=== PATIENT | female | born 1955 | race Caucasian/White ===

== ENCOUNTER 2020-01-08 06:29 | Inpatient (IN) | payer MEDICARE, OTHER ==
[2020-01-08] MEDS ORDERED: ACETAMINOPHEN TAB 325 MG TAB PO STA (06:53)
[2020-01-08] MEDS ORDERED: IPRATROPIUM-ALBUTEROL 3 ML NEB INHALATION STA ×2 (06:58→07:00)
[2020-01-08] MEDS: SODIUM CHLORIDE 0.9% 1,000 ML IV SCH ×3 (07:03→21:16)
--- NOTE | 2020-01-08 07:12 | ED ---
URI HPI - General Source: patient, EMS, RN notes reviewed Mode of arrival: EMS Limitations: altered mental status <Shilo Chase - Last Filed: 01/08/20 08:19> <Enoch Antonio - Last Filed: 01/08/20 08:51> - General Chief Complaint: Upper Respiratory Infection Stated Complaint: Pneumonia Time Seen by Provider: 01/08/20 06:33 - History of Present Illness Initial Comments: This a 64-year-old female presents emergency department as a transfer from [facility] complaining of pneumonia, lung consolidation, hypoxia. Patient has underlying dementia and resides at a [facility]. Patient found to have fever, cough. Patient did undergo lab work, x-ray, CT of the chest. Patient CT shows consolidation in the left lung. Patient did have hypoxia regardless of 5 L in which a PG was obtained and showed O2 at 99%. Patient was then placed on 3 L. Patient's had recent fever. Patient did have a lactate of 4.1. Patient was given mild fluid hydration. Patient denies any current pain. Patient informati on is very limited and patient has baseline confusion. (Shilo Chase) - Related Data Previous Rx's Medication Instructions Recorded Cholecalciferol [Vitamin D3 (25 2,000 unit PO BID #120 tab 04/08/16 Mcg = 1000 Iu)] Divalproex ER [Depakote ER] 500 mg PO TID #90 tab.er.24h 04/08/16 Escitalopram [Lexapro] 10 mg PO DAILY #30 tab 04/08/16 Furosemide [Lasix] 20 mg PO Q2D #30 tab 04/08/16 LORazepam [Ativan] 1 mg PO TID PRN #60 tab 04/08/16 Lurasidone [Latuda] 40 mg PO PC-BID #60 tab 04/08/16 Memantine [Namenda] 5 mg PO DAILY #30 tab 04/08/16 Oxybutynin Chloride [Ditropan] 2.5 mg PO BID #30 tab 04/08/16 SILVER sulfADIAZINE CREAM 1 applic TOPICAL DAILY #1 applic 04/08/16 [Silvadene Cream] haloperidoL [Haldol] 10 mg PO HS #60 tab 04/08/16 hydrOXYzine pamoate [Vistaril] 25 mg PO Q6HR #60 cap 04/08/16 metFORMIN HCL [Glucophage] 500 mg PO W/BRKFST #30 tab 04/08/16 sitaGLIPtin [Januvia] 50 mg PO DAILY #30 tab 04/08/16 traZODone HCL [Desyrel] 50 mg PO HS #30 tab 04/08/16 Allergies Allergy/AdvReac Type Severity Reaction Status Date / Time No Known Allergies Allergy Verified 03/18/16 08:32 Review of Systems ROS Other: All systems not noted in ROS Statement are negative. <Shilo Chase - Last Filed: 01/08/20 08:19> ROS Other: All systems not noted in ROS Statement are negative. <Enoch Antonio - Last Filed: 01/08/20 08:51> ROS Statement: Those systems with pertinent positive or pertinent negative responses have been documented in the HPI. Past Medical History Past Medical History: Diabetes Mellitus, Hypertension, Skin Disorder Additional Past Medical History / Comment(s): Pt. appears to have dementia and is unable to recall medical pbs. History of Any Multi-Drug Resistant Organisms: None Reported Past Alcohol Use History: None Reported Past Drug Use History: None Reported <Shilo Chase - Last Filed: 01/08/20 08:19> General Exam Limitations: altered mental status General appearance: alert, in no apparent distress Head exam: Present: atraumatic, normocephalic, normal inspection Eye exam: Present: normal appearance, PERRL, EOMI. Absent: scleral icterus, conjunctival injection, periorbital swelling ENT exam: Present: normal exam, normal oropharynx, mucous membranes moist Neck exam: Present: normal inspection, full ROM. Absent: tenderness, meningismus, lymphadenopathy Respiratory exam: Present: respiratory distress (Mild), wheezes, rhonchi, decreased breath sounds. Absent: normal lung sounds bilaterally, rales, stridor Cardiovascular Exam: Present: normal rhythm, tachycardia, normal heart sounds. Absent: systolic murmur, diastolic murmur, rubs, gallop, clicks GI/Abdominal exam: Present: soft, normal bowel sounds. Absent: distended, tenderness, guarding, rebound, rigid Neurological exam: Present: alert, oriented X3 Skin exam: Present: warm, dry, intact, normal color. Absent: rash <Shilo Chase - Last Filed: 01/08/20 08:19> Course Vital Signs 01/08/20 01/08/20 01/08/20 06:30 06:50 07:01 Temperature 100.3 F H Pulse Rate 130 H 131 H Respiratory 36 H 36 H Rate Blood Pressure 159/59 O2 Sat by Pulse 84 L Oximetry 01/08/20 01/08/20 01/08/20 07:18 07:37 08:30 Temperature 98.2 F Pulse Rate 142 H 144 H 142 H Respiratory 24 20 Rate Blood Pressure 139/104 179/85 O2 Sat by Pulse 87 L 96 Oximetry Procedures - Intubation Sedative: Versed Mg Given: 5 Paralytic: Rocuronium Mg Given: 50 Laryngoscope: Delmar Size: 3 ET Tube Size: 7.5 ET Tube Uncuffed: No Tube Secured Depth (cm): 22 Tube Secured Location: lips Tube Placement Confirmation: visualized tube passing through cords, equal breath sounds bilaterally, no breath sounds over epigastrium, confirmation by capnometry Patient Tolerated Procedure: well, no complications Intubation Complications: none <Enoch Antonio - Last Filed: 01/08/20 08:51> Medical Decision Making - Lab Data Result diagrams: 01/08/20 07:04 01/08/20 07:04 <Shilo Chase - Last Filed: 01/08/20 08:19> - Lab Data Result diagrams: 01/08/20 07:04 01/08/20 07:04 <Enoch Antonio - Last Filed: 01/08/20 08:51> - Medical Decision Making 63-year-old presented for transfer pneumonia. Patient found to be persistently hypoxic, tachycardic. Patient was in acute respiratory distress. Patient was intubated at this time by Dr. Antonio. Patient was given Zosyn prior arrival continuation of Zosyn. ICU/logging contractor Dr. Snyder was contacted evaluate the patient emergency department. Patient did have fluid hydration ordered. Patient will be admitted to ICU for further management and possible bronchoscopy. (Shilo Chase) Patient was accepted as a transfer for pneumonia, hypoxia, CT showing obstructed bronchus and concern for aspiration. She was given antibiotics prior to transfer. Upon arrival she has oxygen saturation in the mid to low 80s. Despite supplemental oxygen, this does not improve. Patient's paperwork does indicate that she is a full code. This time I did decide to intubate the patient for improved oxygenation. She is intubated with a 7.5 ET tube without complication. She is admitted to ICU. Case is discussed with Dr. Pascual and Dr. Snyder who is able to evaluate the patient in the emergency department. (Enoch Antonio) - Lab Data Lab Results 01/08/20 01/08/20 01/08/20 Range/Units 07:04 07:04 07:04 WBC 8.7 (3.8-10.6) k/uL RBC 4.09 (3.80-5.40) m/uL Hgb 14.0 (11.4-16.0) gm/dL Hct 40.7 (34.0-46.0) % MCV 99.4 (80.0-100.0) fL MCH 34.1 (25.0-35.0) pg MCHC 34.4 (31.0-37.0) g/dL RDW 13.5 (11.5-15.5) % Plt Count 135 L (150-450) k/uL Neutrophils % 82 % Lymphocytes % 10 % Monocytes % 6 % Eosinophils % 1 % Basophils % 0 % Neutrophils # 7.2 (1.3-7.7) k/uL Lymphocytes # 0.9 L (1.0-4.8) k/uL Monocytes # 0.6 (0-1.0) k/uL Eosinophils # 0.1 (0-0.7) k/uL Basophils # 0.0 (0-0.2) k/uL VBG pH (7.31-7.41) VBG pCO2 (37-51) mmHg VBG HCO3 (24-28) mmol/L Sodium 140 (137-145) mmol/L Potassium 4.1 (3.5-5.1) mmol/L Chloride 103 (98-107) mmol/L Carbon Dioxide 29 (22-30) mmol/L Anion Gap 8 mmol/L BUN 17 (7-17) mg/dL Creatinine 0.71 (0.52-1.04) mg/dL Est GFR (CKD-EPI)AfAm >90 (>60 ml/min/1.73 sqM) Est GFR (CKD-EPI)NonAf >90 (>60 ml/min/1.73 sqM) Glucose 197 H (74-99) mg/dL Plasma Lactic Acid Dennis 3.0 H* (0.7-2.0) mmol/L Calcium 9.4 (8.4-10.2) mg/dL Magnesium 1.7 (1.6-2.3) mg/dL Total Bilirubin 1.0 (0.2-1.3) mg/dL AST 31 (14-36) U/L ALT 15 (4-34) U/L Alkaline Phosphatase 47 (38-126) U/L Total Protein 6.2 L (6.3-8.2) g/dL Albumin 3.5 (3.5-5.0) g/dL 01/08/20 Range/Units 07:13 WBC (3.8-10.6) k/uL RBC (3.80-5.40) m/uL Hgb (11.4-16.0) gm/dL Hct (34.0-46.0) % MCV (80.0-100.0) fL MCH (25.0-35.0) pg MCHC (31.0-37.0) g/dL RDW (11.5-15.5) % Plt Count (150-450) k/uL Neutrophils % % Lymphocytes % % Monocytes % % Eosinophils % % Basophils % % Neutrophils # (1.3-7.7) k/uL Lymphocytes # (1.0-4.8) k/uL Monocytes # (0-1.0) k/uL Eosinophils # (0-0.7) k/uL Basophils # (0-0.2) k/uL VBG pH 7.43 H (7.31-7.41) VBG pCO2 45 (37-51) mmHg VBG HCO3 29 H (24-28) mmol/L Sodium (137-145) mmol/L Potassium (3.5-5.1) mmol/L Chloride (98-107) mmol/L Carbon Dioxide (22-30) mmol/L Anion Gap mmol/L BUN (7-17) mg/dL Creatinine (0.52-1.04) mg/dL Est GFR (CKD-EPI)AfAm (>60 ml/min/1.73 sqM) Est GFR (CKD-EPI)NonAf (>60 ml/min/1.73 sqM) Glucose (74-99) mg/dL Plasma Lactic Acid Dennis (0.7-2.0) mmol/L Calcium (8.4-10.2) mg/dL Magnesium (1.6-2.3) mg/dL Total Bilirubin (0.2-1.3) mg/dL AST (14-36) U/L ALT (4-34) U/L Alkaline Phosphatase (38-126) U/L Total Protein (6.3-8.2) g/dL Albumin (3.5-5.0) g/dL Critical Care Time Critical Care Time: Yes Total Critical Care Time: 35 <Shilo Chase - Last Filed: 01/08/20 08:19> Critical Care Time: Total 35 minutes of critical care were used to evaluate the patient, reviewed past medical history, according of labs, EKG. Patient's found to have anemia, lactic of 12.1, acute renal failure. Blood was ordered at the time. Patient did have initial fluid bolus ordered though this is discontinued secondary to hemoglobin at 3. Be admitted with consult. (Shilo Chase) Disposition <Shilo Chase - Last Filed: 01/08/20 08:19> <Enoch Antonio - Last Filed: 01/08/20 08:51> Clinical Impression: Lactic acidosis, Pneumonia, Hypoxia, Acute respiratory distress Disposition: ADMITTED IP TO THIS HOSP Condition: Critical
[2020-01-08 07:27] LABS: VBG PH 7.43 (7.31-7.41)
[2020-01-08 07:37] LABS: ALT 15 U/L (4-34); AST 31 U/L (14-36); African American GFR (CKD) >90 (>60 ml/min/1.73 sqM); Albumin 3.5 g/dL (3.5-5.0); Alkaline Phosphatase 47 U/L (38-126); Anion Gap 8 mmol/L; Blood Urea Nitrogen 17 mg/dL (7-17); Calcium 9.4 mg/dL (8.4-10.2); Carbon Dioxide 29 mmol/L (22-30); Chloride 103 mmol/L (98-107); Glucose 197 mg/dL (74-99); Magnesium 1.7 mg/dL (1.6-2.3); Non-African American GFR(CKD) >90 (>60 ml/min/1.73 sqM); Sodium 140 mmol/L (137-145); Total Protein 6.2 g/dL (6.3-8.2)
[2020-01-08] MEDS ORDERED: MIDAZOLAM 1 MG/ML 5 ML VIAL IV STA (07:45)
[2020-01-08] MEDS ORDERED: ETOMIDATE 2 MG/ML 10 ML VIAL IVP STA (07:45)
[2020-01-08 07:51] LABS: Potassium 4.1 mmol/L (3.5-5.1)
[2020-01-08 07:59] LABS: Basophils % (A) 0 %; Eosinophils # (A) 0.1 k/uL (0-0.7); Eosinophils % (A) 1 %; HCT 40.7 % (34.0-46.0); Lymphocytes # (A) 0.9 k/uL (1.0-4.8); Lymphocytes % (A) 10 %; MCH 34.1 pg (25.0-35.0); MCHC 34.4 g/dL (31.0-37.0); MCV 99.4 fL (80.0-100.0); Mean Platelet Volume 7.5; Monocytes # (A) 0.6 k/uL (0-1.0); Monocytes % (A) 6 %; Neutrophils # (A) 7.2 k/uL (1.3-7.7); Neutrophils % (A) 82 %; Platelet Count 135 k/uL (150-450); RBC 4.09 m/uL (3.80-5.40); RDW 13.5 % (11.5-15.5); WBC 8.7 k/uL (3.8-10.6)
[2020-01-08] MEDS ORDERED: ROCURONIUM BROMIDE 10 MG/ML 5 ML VIAL IV STA (08:06)
[2020-01-08] MEDS ORDERED: NALOXONE 0.4 MG/ML 1 ML VIAL IV PRN (08:14)
--- NOTE | 2020-01-08 08:24 | XR ---
EXAMINATION TYPE: XR chest 1V DATE OF EXAM: 01/08/2020 COMPARISON: Outside chest CT in the chest x-ray earlier today. HISTORY: Intubated for shortness of breath. TECHNIQUE: Single AP portable frontal supine view of the chest is obtained. FINDINGS: New endotracheal tube at level of aortic knob roughly 1 cm above mario, advise pulling elvira k 4 cm. New orogastric tube projecting below diaphragm. There is low lung volumes and left mid lung consolidation more prominent from the prior x-ray. Right lung is clear. No pleural effusion or pneumothorax seen bilaterally. Multilevel spurring in the spine . IMPRESSION: 1. Advise pulling back endotracheal tube 4 cm to be more ideal position. Satisfactory positioning alexis gastric tube. 2. Worsening left mid lung acute infiltrate and/or atelectasis.
[2020-01-08] MEDS: PANTOPRAZOLE 40 MG/10 ML VIAL IV SCH (09:13)
[2020-01-08] MEDS: ENOXAPARIN 40 MG/0.4 ML SYRINGE SQ SCH (09:13)
[2020-01-08 09:41] LABS: ABG Base Excess -1.2 mmol/L; ABG HCO3 24 mmol/L (21-25); ABG Oxygen Saturation 96.4 % (94-97); ABG PCO2 40 mmHg (35-45); ABG PH 7.39 (7.35-7.45); ABG PO2 90 mmHg (83-108); ABG TCO2 25 mmol/L (19-24); Allen Test Performed? Yes
[2020-01-08] MEDS ORDERED: CHLORHEXIDINE GLUCONATE 15 ML CUP MUCOUS MEM ONE (10:15)
[2020-01-08 11:27] LABS: Glucose,Whole Blood 274 mg/dL (75-99)
--- NOTE | 2020-01-08 11:41 | P.HPIM ---
History of Present Illness This is a pleasant 64 years old female with past medical history of dementia, diabetes mellitus, hypertension, chronic venous stasis of both lower extremities with leg edema, frequent falls. Anxiety, depression and schizoaffective disorder. History of urinary incontinence. Patient is from [facility]. Normally she is oriented to time and place and person. Patient got intubated and emergency room and information could not be obtained from patient. Was obtained from medical records and staff. She was transferred from [facility] for pneumonia and hypoxia. She had fever and cough and. She is tachycardic with heart rate 133-142, blood pressure 164/68, she had low- grade fever of 100.3. Left showing unremarkable CBC, BMP and liver enzymes. Lactic acid is elevated to 3.0-3.8 Chest x-ray: Showing worsening left midlung acute infiltrate, endotracheal tube In the emergency room patient was started on Tylenol, bronchodilator and Zosyn Review of Systems n/a patient is intubated Past Medical History Past Medical History: Dementia, Diabetes Mellitus, Hypertension, Skin Disorder, Vascular Disorder Additional Past Medical History / Comment(s): Pt is normally oriented to person, place and time. Other hx: IDDM type II, PVD, bilateral lower leg cellulitis, chronic venous stasis bilateral lower legs, bilateral lower leg edema, chair bound, past frequent falls, constipation with last BM 01/07/20. History of Any Multi-Drug Resistant Organisms: None Reported Past Surgical History: Unable to Obtain Past Anesthesia/Blood Transfusion Reactions: Unable to Obtain Smoking Status: Former smoker - Past Family History Father Family Medical History: Unable to Obtain Mother Family Medical History: Unable to Obtain Medications and Allergies Home Medications Medication Instructions Recorded Confirmed Type Acetaminophen [Tylenol Extra 500 mg PO Q6H PRN 01/08/20 01/08/20 History Strength] Bumetanide [BUMEX] 2 mg PO BID@0900,1700 01/08/20 01/08/20 History Calcium Carbonate [Tums] 1,000 mg PO Q2H PRN MDD 7500mg 01/08/20 01/08/20 History Divalproex ER [Depakote ER] 500 mg PO TID@0900,1700,199901/08/20 01/08/20 History Escitalopram [Lexapro] 5 mg PO DAILY@0900 01/08/2020 History Insulin Glargine,Hum.rec.anlog 20 unit SQ HS@199901/08/20 01/08/20 History [Harry Palma U-100] Ketoconazole 2% Shampoo [Nizoral] 1 applic TOPICAL DAILY PRN 01/08/20 01/08/20 History Linagliptin [Tradjenta] 5 mg PO DAILY@89901/08/20 01/08/20 History Magnesium Hydroxide [Milk of 7,200 mg PO DAILY PRN 01/08/20 01/08/20 History Magnesia Concentrate] Memantine [Namenda] 5 mg PO BID@899,169901/08/20 01/08/20 History Ondansetron [Zofran ODT] 4 mg PO Q4H PRN 01/08/20 01/08/20 History Potassium Chloride ER [K-Dur 20] 40 meq PO DAILY@89901/08/20 01/08/20 History bisacodyL [Bisacodyl] 10 mg RECTAL Q72H PRN 01/08/20 01/08/20 History haloperidoL [Haldol] 10 mg PO HS@199901/08/20 01/08/20 History metFORMIN HCL [Glucophage] 500 mg PO BID@0900,1700 01/08/20 01/08/20 History Allergies Allergy/AdvReac Type Severity Reaction Status Date / Time No Known Allergies Allergy Verified 01/08/20 09:05 Physical Exam Vitals: Vital Signs Temp Pulse Resp BP Pulse Ox 01/08/20 10:30 99.2 F 133 H 20 164/68 99 01/08/20 10:00 135 H 20 168/90 99 01/08/20 09:30 142 H 20 175/45 97 01/08/20 09:00 134 H 20 149/88 95 01/08/20 08:30 142 H 20 179/85 96 01/08/20 07:37 98.2 F 144 H 24 139/104 87 L 01/08/20 07:18 142 H 01/08/20 07:01 131 H 01/08/20 06:50 36 H 01/08/20 06:30 100.3 F H 130 H 36 H 159/59 84 L Intake and Output 01/07/20 01/08/20 01/08/20 22:59 06:59 14:59 Intake Total 1.751 Balance 1.751 Intake: Intake, IV Titration 1.751 Amount propofoL 1,000 mg In 1.751 Empty Bag 1 bag @ Titrate IV .Q0M [facility] Rx#: [id number] Other: Weight 108.862 kg 108.862 kg -GENERAL: The patient is intubated and sedated HEENT: Pupils are round and equally reacting to light. EOMI. No scleral icterus. No conjunctival pallor. Normocephalic, atraumatic. No pharyngeal erythema. No thyromegaly. CARDIOVASCULAR: S1 and S2 present. No murmurs, rubs, or gallops. -PULMONARY: Chest is clear to auscultation, no wheezing. Crepitation in the left side ABDOMEN: Soft, nontender, nondistended, normoactive bowel sounds. No palpable organomegaly. MUSCULOSKELETAL: No joint swelling or deformity. EXTREMITIES: No cyanosis, clubbing, or pedal edema. NEUROLOGICAL: Gross neurological examination did not reveal any focal deficits. SKIN: No rashes. No petechiae Results CBC & Chem 7: 01/08/20 07:04 01/08/20 07:04 Labs: Abnormal Lab Results - Last 24 Hours (Table) 01/08/20 01/08/20 01/08/20 Range/Units 07:04 07:04 07:04 Plt Count 135 L (150-450) k/uL Lymphocytes # 0.9 L (1.0-4.8) k/uL ABG Total CO2 (19-24) mmol/L VBG pH (7.31-7.41) VBG HCO3 (24-28) mmol/L Glucose 197 H (74-99) mg/dL Plasma Lactic Acid Dennis 3.0 H* (0.7-2.0) mmol/L Total Protein 6.2 L (6.3-8.2) g/dL 01/08/20 01/08/20 01/08/20 Range/Units 07:13 09:35 10:16 Plt Count (150-450) k/uL Lymphocytes # (1.0-4.8) k/uL ABG Total CO2 25 H (19-24) mmol/L VBG pH 7.43 H (7.31-7.41) VBG HCO3 29 H (24-28) mmol/L Glucose (74-99) mg/dL Plasma Lactic Acid Dennis 3.8 H* (0.7-2.0) mmol/L Total Protein (6.3-8.2) g/dL Thrombosis Risk Factor Assmnt - Choose All That Apply Any of the Below Risk Factors Present?: Yes Each Factor Represents 1 point: Medical pt on bed rest, Obesity (BMI >25), Serious lung disease incl. pneumonia (< 1month) Other Risk Factors: Yes Each Risk Factor Represents 2 Points: Age 61-74 years, Patient confined to bed Other congenital or acquired thrombophilia - If yes, enter type in comment: No Thrombosis Risk Factor Assessment Total Risk Factor Score: 7 Thrombosis Risk Factor Assessment Level: High Risk Assessment and Plan Assessment: Acute left lung pneumonia, most likely healthcare acquired pneumonia Acute hypoxic respiratory failure, needing intubation and mechanical ventilation Elevated lactic acid Dementia Diabetes mellitus Hypertension Chronic venous stasis ulcers and bilateral leg edema Frequent falls History of anxiety, depression and schizoaffective disorder History of urinary incontinence Plan: This is a pleasant 64 years old female who presents with left pneumonia and respiratory failure. Continue with Zosyn. Follow-up sputum culture results. Follow-up recommendation by pulmonary team service. Continue with insulin sliding scale. Labs and medication were reviewed.. Continue same treatment. Continue with symptomatic treatment. Resume home medication. Monitor lytes and vitals. DVT and GI prophylaxis. Further recommendations depends on the clinical course of the patient DVT prophylaxis: Subcutaneou Lovenox GI Prophylaxis: Ppi Prognosis is guarded
[2020-01-08] MEDS ORDERED: CISATRACURIUM 2 MG/ML 5 ML VIAL IV ONE (12:10)
[2020-01-08] MEDS: IPRATROPIUM-ALBUTEROL 3 ML NEB INHALATION SCH ×4 (12:28→23:30)
[2020-01-08] MEDS ORDERED: INSULIN ASPART (NovoLOG) 100 UNIT/ML VIAL SQ SCH (12:30)
--- NOTE | 2020-01-08 12:57 | XR ---
EXAMINATION TYPE: XR chest 1V DATE OF EXAM: 01/08/2020 CLINICAL HISTORY: Central line placement. TECHNIQUE: Single AP portable upright view of the chest is obtained. COMPARISON: Chest x-ray from earlier today and older studies FINDINGS: Stable positioning of endotracheal and orogastric tubes. New left internal jugular central venous catheter terminating in right atrium. Worsening left mid to basilar opacity now silhouetting left hemidiaphragm. Right lung remains clear. Cardiac silhouette size stable and within normal limit s. Osseous structures are intact. IMPRESSION: 1. New left internal jugular central venous catheter terminating in right atrium. No pneumothorax not ed. 2. Stable slightly low positioned endotracheal tube just above mario. Advise pulling back 3 to 4 cm. 3. Worsening left mid to lower lung acute infiltrate and/or atelectasis noted.
[2020-01-08] MEDS: CLEVIDIPINE BUTYRATE 25 MG in EMPTY BAG 1 BAG IV SCH ×2 (13:04→16:45)
--- NOTE | 2020-01-08 13:16 | CONS ---
CONSULTATION PULMONARY/CRITICAL CARE CONSULTATION: DATE OF CONSULTATION: 01/08/2020. REASON FOR CONSULTATION: Respiratory failure. This is a 64-year-old white female who apparently presented to the [facility] Emergency Room complaining of shortness of breath. She apparently was a resident at [facility] prior. Anyway, the patient presented to the emergency room there. She was evaluated there for a pneumonia and then transferred down to our emergency room. She was seen here by Dr. Antonio. Dr. Antonio stated that the patient was apparently having difficulty breathing. Her saturations despite supplemental oxygen were low and he ended up intubating the patient. He apparently tells me that the patient did have a fever and cough. A chest x-ray and CAT scan were done there which showed consolidation in the left lower lobe and for that reason, she was transferred. Currently, we are seeing her in the emergency department. She is currently sedated and she is intubated. She has a 7.5 endotracheal tube. Currently, she is on the volume assist-control mode rate of 14, tidal volume 450, FiO2 100%, 5 of PEEP. We are going to bump the rate of 20, and drop the tidal volume down to 350. She will remain on 100% 5 of PEEP and blood gases will be obtained. She is getting saline at 125 mL an hour. We have had a chance to look at her x-rays and CAT scans. CURRENT MEDICATIONS: Reviewed. She is on vitamin D3, Depakote, Lexapro, Lasix, Ativan, Latuda, Namenda, Ditropan, Silvadene cream, Haldol, Vistaril, Glucophage, Januvia, Desyrel. ALLERGIES: Denied. PAST MEDICAL HISTORY: As per the ER lion includes diabetes mellitus, hypertension, and dementia. She also has some sort of skin disorder. Surgical history is not noted. SOCIAL HISTORY: Apparently either not noted or negative. No illicit drug history. No tobacco history. REVIEW OF SYSTEMS: Cannot be obtained as the patient is currently intubated and mechanically ventilated. Current vital signs include a temperature of 100.3, heart rate 120, respiratory rate initially was 36, now of 14, blood pressure 159/59. Initial saturations were only 84%. Currently sedated. On mechanical ventilator, 7.5 endotracheal tube in. There is an orally placed NG tube. HEENT: Examination is grossly unremarkable. NECK: Supple, full range of motion. No adenopathy or neck vein distention. CARDIOVASCULAR: Examination reveals tachycardia. It is sinus. Heart sounds are distant. LUNGS: Reveal diffuse coarse rhonchi, more so on the left than on the right side. Breath sounds equal. ABDOMEN: Soft, bowel sounds are not noted. EXTREMITIES: Reveal some edema. It is 1+ and pitting. SKIN: Shows erythema and hyperemia of the lower extremities. NEUROLOGIC: Examination could not be adequately evaluated. LABS: Reviewed. Initial set the labs show white count of 8.7, hemoglobin 14, hematocrit 40.7, platelet count 135,000. Venous blood gases show pCO2 of 45 and a pH of 7.43. Sodium 140, potassium 4.1 chloride 103, CO2 is 29, anion gap is 8. BUN and creatinine were 17 and 0.71, glucose 197. Lactic acid 3. The rest of the liver function tests were normal. Microbiology is pending or negative. A chest x-ray here shows an endotracheal tube above about 4 cm above the tracheal mario. There is some atelectasis throughout the right lung and the left lung shows some areas of consolidation. Current medications include Narcan, Protonix, Zosyn, and saline. I did ask the nurses and respiratory therapist to add some DuoNeb q.4 around the clock. The antibiotic is fine for now. She does have GI prophylaxis. ASSESSMENT: 1. Acute hypoxemic respiratory failure, presumably secondary to left-sided pneumonia. 2. History of diabetes mellitus. 3. Vague history of hypertension. 4. History of dementia. 5. Vitamin D deficiency. 6. Obesity. 7. Vague skin disorder. PLAN: Please see my recommendations above. The patient's vent settings have been changed. We will drop the tidal volume down to 350, increased the rate to 20. The patient will be on albuterol and Atrovent updrafts q.4 around the clock. She is already on GI prophylaxis. Will add DVT prophylaxis either in the form of subcu heparin or Lovenox subcu. She is currently on antibiotic. Will do a blood glucose checks periodically and cover her with sliding scale insulin. Additional recommendations and suggestions are forthcoming. Prognosis is guarded. She will need full cultures, blood, urine, sputum. Will follow. MMODL / IJN: [id number] /
[2020-01-08] MEDS: PIPERACILLIN-TAZOBACTAM 3.375 GM in SODIUM CHLORIDE 0.9% 100 ML IVPB SCH ×2 (16:04→23:42)
[2020-01-08] MEDS ORDERED: ACETAMINOPHEN TAB 325 MG TAB PO PRN (16:31)
[2020-01-08] MEDS ORDERED: HYDROmorphone 1 MG/ML 1 ML SYRINGE IVP PRN ×2 (17:44→18:15)
[2020-01-08 18:08] LABS: Glucose,Whole Blood 275 mg/dL (75-99)
[2020-01-08] MEDS: INSULIN ASPART (NovoLOG) 100 UNIT/ML VIAL SQ SCH ×2 (18:16→23:43)
[2020-01-08] MEDS: NOREPINEPHRINE 8 MG in SODIUM CHLORIDE 0.9% 250 ML IV SCH (19:58)
[2020-01-08 23:40] LABS: Glucose,Whole Blood 222 mg/dL (75-99)
[2020-01-09] MEDS: IPRATROPIUM-ALBUTEROL 3 ML NEB INHALATION SCH ×5 (04:00→20:45)
[2020-01-09 04:14] LABS: HCT 32.1 % (34.0-46.0); MCH 33.7 pg (25.0-35.0); MCHC 33.5 g/dL (31.0-37.0); MCV 100.4 fL (80.0-100.0); Mean Platelet Volume 7.2; Platelet Count 126 k/uL (150-450); RDW 12.9 % (11.5-15.5); WBC 7.8 k/uL (3.8-10.6)
[2020-01-09] MEDS: SODIUM CHLORIDE 0.9% 1,000 ML IV SCH ×3 (04:18→20:23)
[2020-01-09 04:29] LABS: African American GFR (CKD) >90 (>60 ml/min/1.73 sqM); Anion Gap 4 mmol/L; Blood Urea Nitrogen 17 mg/dL (7-17); Calcium 8.9 mg/dL (8.4-10.2); Carbon Dioxide 26 mmol/L (22-30); Chloride 109 mmol/L (98-107); Glucose 205 mg/dL (74-99); Non-African American GFR(CKD) 81 (>60 ml/min/1.73 sqM); Potassium 3.2 mmol/L (3.5-5.1); Sodium 139 mmol/L (137-145)
[2020-01-09 04:30] LABS: HGB 10.8 gm/dL (11.4-16.0)
[2020-01-09] MEDS ORDERED: Potassium Replacement Protocol 1 EACH MISC MISCELLANE PRN (04:41)
[2020-01-09] MEDS: POTASSIUM CHLORIDE 20 MEQ in WATER FOR INJECTION 1 100ML.BAG IVPB SCH ×2 (04:53→07:06)
[2020-01-09 05:16] LABS: Band Neutrophils % 42 %; Lymphocytes # (M) 0.94 k/uL (1.0-4.8); Metamyelocytes # (M) 0.16 k/uL (0); Metamyelocytes % 2 %; Monocytes # (M) 0.08 k/uL (0-1.0); Neutrophils % (M) 43 %; Nucleated Red Blood Cells 0 /100 WBC (0-0); Total Cells Counted 100
[2020-01-09 05:17] LABS: ABG Base Excess -0.2 mmol/L; ABG HCO3 25 mmol/L (21-25); ABG Oxygen Saturation 99.7 % (94-97); ABG PCO2 40 mmHg (35-45); ABG PO2 142 mmHg (83-108); ABG TCO2 26 mmol/L (19-24); Allen Test Performed? Yes
[2020-01-09 05:35] LABS: Glucose,Whole Blood 207 mg/dL (75-99)
[2020-01-09] MEDS: INSULIN ASPART (NovoLOG) 100 UNIT/ML VIAL SQ SCH ×4 (05:38→23:48)
--- NOTE | 2020-01-09 08:53 | PCN ---
PROCEDURE NOTE PROCEDURE PERFORMED: Left internal jugular triple-lumen catheter. TRIPLE LUMEN CATHETER PLACEMENT: Indication: Hemodynamic monitoring/Intravenous access. PREOP DIAGNOSIS: Administration of fluids and pressors. POSTOP DIAGNOSIS: Administration of fluids and pressors. DESCRIPTION OF PROCEDURE: A time-out was completed verifying correct patient, procedure, site, positioning, and implant(s) or special equipment if applicable. The patient was placed in a dependent position appropriate for triple lumen catheter placement based on the vein to be cannulated. The patient's left neck was prepped and draped in sterile fashion. 1% Lidocaine was used to anesthetize the surrounding skin area. A triple lumen 9F Cordis catheter was introduced into the internal jugular vein using Seldinger technique. The catheter was threaded smoothly over the guide wire and appropriate blood return was obtained. Each lumen of the catheter was evacuated of air and flushed with sterile saline. The catheter was then sutured in place to the skin and a sterile dressing applied. Perfusion to the extremity distal to the point of catheter insertion was checked and found to be adequate. We used the left internal jugular site posterior approach. There was no immediate complication. There was good blood return from all 3 ports. The catheter was sutured in place. Sterile dressing was applied by the nurse. On chest x-ray, the catheter was seen to be at the junction of the superior vena cava and right atrium. The patient tolerated the procedure well. There was no immediate complications. MMNOHELIA / REALN: [id number] /
--- NOTE | 2020-01-09 08:57 | XR ---
EXAMINATION TYPE: XR chest 1V portable DATE OF EXAM: 01/09/2020 COMPARISON: 01/08/2020 INDICATION: Pneumonia TECHNIQUE: Single frontal view of the chest is obtained. FINDINGS: The heart size is normal. The pulmonary vasculature is normal. Left lower lobe infiltrate is present. Pneumonia is clearing from comparison is better visualization of the diaphragm. Endotracheal tube tip is 2.2 cm above the mario. Nasogastric tube transverses the thorax the tip in the abdomen. Left central venous catheter is present with the tip within the right atrium. IMPRESSION: 1. Resolving left lower lobe pneumonia. Continued follow-up is recommended. 2. Lines and catheters discussed above.
[2020-01-09] MEDS: PANTOPRAZOLE 40 MG/10 ML VIAL IV SCH (09:00)
[2020-01-09] MEDS: ENOXAPARIN 40 MG/0.4 ML SYRINGE SQ SCH (09:00)
[2020-01-09] MEDS: PIPERACILLIN-TAZOBACTAM 3.375 GM in SODIUM CHLORIDE 0.9% 100 ML IVPB SCH ×3 (09:00→23:47)
--- NOTE | 2020-01-09 09:02 | PCN ---
PROCEDURE NOTE PROCEDURE: This was a right radial arterial line placement. A time-out was completed verifying correct patient, procedure, site, positioning, and implant(s) or special equipment if applicable. Margarito's test was performed to ensure adequate perfusion. The patient's right wrist was prepped and draped in sterile fashion. 1% Lidocaine was used to anesthetize the area. An 18G Arrow arterial line was introduced into the radial/femoral artery. The catheter was threaded over the guide wire and the needle was removed with appropriate pulsatile blood return. Blood loss was minimal. The catheter was then sutured in place to the skin and a sterile dressing applied. Perfusion to the extremity distal to the point of catheter insertion was checked and found to be adequate. The patient tolerated the procedure well and there were no complications. No immediate complications. Good waveform was noted. Line was flushed, sutured in place. Sterile dressing was applied. MMODL / IJN: [id number] /
[2020-01-09] MEDS: HALOPERIDOL ORAL SOLN 10 MG/5 ML CUP OG-TUBE SCH ×2 (09:59→20:22)
[2020-01-09] MEDS: VALPROIC ACID ORAL SOLN 250 MG/5 ML CUP OG-TUBE SCH ×3 (09:59→23:48)
[2020-01-09] MEDS ORDERED: SODIUM CHLORIDE 0.9% 1,000 ML IV ONE (10:37)
[2020-01-09 10:48] LABS: Amorphous Sediment,Urine Many /hpf; Appearance,Urine Turbid (Clear); Bilirubin,Urine Negative (Negative); Blood,Urine Negative (Negative); Color,Urine Yellow; Glucose,Urine (UA) Negative (Negative); Ketones,Urine Negative (Negative); Leukocyte Esterase,Urine Negative (Negative); Mucus,Urine Rare /hpf; Nitrite,Urine Negative (Negative); PH, Urine 5.5 (5.0-8.0); Protein,Urine 1+ (Negative); Specific Gravity,Urine 1.031 (1.001-1.035); Urobilinogen,Urine <2.0 mg/dL (<2.0); WBC,Urine 5 /hpf (0-5)
--- NOTE | 2020-01-09 11:35 | PN ---
PROGRESS NOTE PULMONARY/CRITICAL CARE PROGRESS NOTE: Critical care time is 34 minutes. DATE OF SERVICE: January 09, 2020 HISTORY: This is a 64-year-old female who was presented to the [facility] Emergency room via the EMS from [facility]. The patient was evaluated there and transferred down here for pneumonia. She was evaluated by Dr. Antonio in our emergency room and the patient was demonstrating evidence of acute hypoxemic respiratory failure, and impending lucas respiratory failure. The patient was electively intubated by Dr. Antonio. The patient was found to have significant bilateral pneumonia. Yesterday, the patient had an art line and central line placed. She remains on mechanical ventilator. Her vent settings include volume assist-control mode rate of 20, tidal volume 350, FiO2 of 50%, PEEP of 10. Blood gases show pO2 of 142, pCO2 of 40 and a pH of 7.4. That was on 60%. The FiO2 was dropped then by respiratory to 50%. I did tell them that later today maybe at 1 o'clock or so, if her saturations remained excellent, the PEEP can be dropped from 10 to 5. She is currently on propofol at 40 mcg/kg per minute, previously on 20; saline at 130 mL an hour; Levophed which is on hold, Cleviprex, which is currently on hold or off. I did mention to the nurse that she should be started on tube feeds. We should resume her Haldol and Depakote and currently, microbiology is negative, although she remains on Zosyn for pneumonia. Culture data is as mentioned, have been negative thus far. She is only 64, but she does look much older than her stated age. Not clear to me how long she has been a resident of [facility]. PHYSICAL EXAMINATION: VITAL SIGNS: Current vital signs are reviewed. Temperature is 99. Heart rate 90, respiratory rate is 20. Blood pressure 91/58, mean 69, CVP is 8 and saturations are 100%. GENERAL: Appears in no acute distress. Currently sedated. HEENT: Examination is grossly unremarkable. She has an orally placed endotracheal tube and NG tube. NECK: Supple. Full range of motion. No adenopathy. Neck veins are flat. CARDIOVASCULAR: Examination reveals regular rhythm and rate. Heart rate 90. S1, S2 normal. LUNGS: Reveal diffuse coarse rhonchi. Breath sounds equal. No crackles. ABDOMEN: Soft. Bowel sounds are not noted. EXTREMITIES are intact. Slight edema. No cyanosis or clubbing. SKIN is without rash. NEUROLOGIC: Examination could not be adequately assessed. LABORATORY DATA: Current laboratory data includes a white count of 7.8, hemoglobin 10.8, hematocrit 32.1, platelet count 126,000, blood gases show pO2 of 142, pCO2 of 40 and a pH of 7.40. Sodium 139, potassium 3.2, chloride 109. CO2 26. Anion gap is 4. BUN and creatinine were 17 and 0.79. Lactic acid 1.9. Microbiology thus far is negative. Chest x-ray from January 08 shows bibasilar infiltrates with some improvement in the left lower lobe infiltrates. CURRENT MEDICATIONS: Reviewed. She is currently on Tylenol, Lovenox, Haldol, Dilaudid p.r.n., insulin, DuoNeb, Narcan, Protonix, Zosyn, potassium replacement, propofol and Depakene syrup. ASSESSMENT: 1. Acute hypoxemic respiratory failure, secondary to bibasilar pneumonia, left greater than right, status post intubation and mechanical ventilation on January 08, 2020. 2. History of diabetes mellitus. 3. Vague history of hypertension. 4. History of dementia. 5. Vitamin D deficiency. 6. Obesity. 7. Vague skin disorder. PLAN: The patient will start on tube feeds. We will resume the patient's Haldol and Depakote. Thus far microbiology is negative. She remains on Zosyn. FiO2 is dropped from 60-50 percent. Currently, Levophed and Cleviprex were both on hold her or off. She remains on propofol 40 mcg/kg per minute. She had art line and central line placed yesterday. Prognosis is guarded. Critical care time 34 minutes. MMODL / IJN: [id number] /
[2020-01-09 11:49] LABS: Glucose,Whole Blood 195 mg/dL (75-99)
--- NOTE | 2020-01-09 12:26 | CDI ---
Documentation Clarification Form Date: 01/09/2020 11:54:52 AM From: Sabine Alcaraz RN CCDS Admit Date: 01/08/2020 08:14:00 AM Patient Name: Effie Chandler Visit Number: [id number] Discharge Date: ATTENTION: The Clinical Documentation Specialists (CDI) and [facility] Coding Staff appreciate your assistance in clarifying documentation. Please respond to the clarification below the line at the bottom and electronically sign. The CDI & [facility] Coding staff will review the response and follow-up if needed. Please note: Queries are made part of the Legal Health Record. If you have any questions, please contact the author of this message via ITS. Dr. Guzman Sheet The patient presents as a transfer from [facility] for pneumonia and hypoxia, intubated in ED. History/Risk Factors: 64-year-old female with a medical history of: Dementia, DM, HTN, chronic venous stasis of both lower extremities and urinary incontinence. Clinical Indicators: 01/08 LABS: Wbc 8.7, Lactic Acid 3.0; 3.8; 4.1 Sputum culture Haemophilus species 01/07 Vital signs on admission: B/P: 159/59; HR: 130; Temp: 100.3 F Axillary; Spo2: 84% 5L nasal cannula Treatment: Antibiotics:01/07 Piperacillin Ivpb Q 8hrs; IV Bolus: 01/07 0.9ns 1L bolus Other: 0.9ns 130cc/hr, norepinephrine Bitartrate iv, In your professional opinion, please clarify if these findings signify one of the following conditions, whether the condition is POA, and cause, if known: Sepsis ruled out SIRS, without underlying infectious process POA Sepsis POA Severe Sepsis POA Septic Shock POA Other, please specify Unable to determine Identify the (suspected) organism Link or clarify if there is associated (due to/with): Organ failure Shock SIRS Criteria (2 or more of the following may indicate SIRS): -Temperature < 96.8F (36C) or > 101.0F (38.3C) -Heart Rate > 90 bpm -Respiratory Rate > 20 breaths/min or PaCO2 < 32 mmHg -White Blood Cell Count > 12,000 or < 4,000 cells/mm3 or > 10% bands -Lactate >2.0 mmol/L (>4.0 is equivalent to septic shock) (Last Revision: July 2017) pt has sepsis on admission with fever ,tachycardia and tachypnea , no leukocytosis, MTDD
[2020-01-09 16:05] LABS: Hemoglobin A1C 8.3 % (4.0-6.0)
[2020-01-09 16:51] LABS: Glucose,Whole Blood 157 mg/dL (75-99)
--- NOTE | 2020-01-09 19:30 | P.PN ---
Subjective History of Present Illness This is a pleasant 64 years old female with past medical history of dementia, diabetes mellitus, hypertension, chronic venous stasis of both lower extremities with leg edema, frequent falls. Anxiety, depression and schizoaffective disorder. History of urinary incontinence. [facility]. Normally she is oriented to time and place and person. Patient got intubated and emergency room and information could not be obtained from patient. Was obtained from medical records and staff. She was transferred from [facility] for pneumonia and hypoxia. She had fever and cough and. She is tachycardic with heart rate 133-142, blood pressure 164/68, she had low- grade fever of 100.3. Left showing unremarkable CBC, BMP and liver enzymes. Lactic acid is elevated to 3.0-3.8 Chest x-ray: Showing worsening left midlung acute infiltrate, endotracheal tube In the emergency room patient was started on Tylenol, bronchodilator and Zosyn 01/09/2020 Patient remains intubated in the ICU. She is not undergoing sedation holiday [place] and trial reduction still needs high PEEP of 10. Vitals: Blood pressure looks more stable. Left showing evidence of hemodilution. Potassium 3.2, been replaced. Sugar is slightly elevated but acceptable. Oral tube feeding is started. She remains on Zosyn and normal saline at 1 30 L/h. No need for pressors review of system: N/a Active Medications Generic Name Dose Route Start Last Admin Trade Name Freq PRN Reason Stop Dose Admin Acetaminophen 650 mg 01/08/20 16:31 01/08/20 17:11 Acetaminophen Tab 325 Mg Tab PO 650 mg Q6HR PRN Administration Fever and/ or MILD Pain Albuterol/Ipratropium 3 ml 01/08/20 12:00 01/09/20 15:35 Ipratropium-Albuterol 3 Ml Neb INHALATION 3 ml RT-Q4H CANDI Administration Enoxaparin Sodium 40 mg 01/08/20 09:00 01/09/20 09:00 Enoxaparin 40 Mg/0.4 Ml Syringe SQ 40 mg DAILY CANDI Administration Haloperidol Lactate 5 mg 01/09/20 09:15 01/09/20 09:59 Haloperidol Oral Soln 10 Mg/5 Ml Cup OG-TUBE 5 mg BID CANDI Administration Hydromorphone HCl 1 mg 01/08/20 18:15 Hydromorphone 1 Mg/Ml 1 Ml Syringe IVP Q2HR PRN MODERATE TO SEVERE Pain Sodium Chloride 1,000 mls @ 130 mls/hr 01/08/20 07:00 01/09/20 14:24 Saline 0.9% IV Not Given .Q7H42M CANDI Piperacillin Sod/Tazobactam 100 mls @ 25 mls/hr 01/08/20 16:00 01/09/20 15:23 Sod 3.375 gm/ Sodium Chloride IVPB 25 mls/hr Q8HR CANDI Administration Propofol 1,000 mg/ IV Solution 100 mls @ 0 mls/hr 01/08/20 12:15 01/09/20 18:34 IV 50 mcg/kg/min .Q0M CANDI 31.89 mls/hr Titration Protocol Titrate Norepinephrine Bitartrate 8 mg 258 mls @ 10.532 mls/hr 01/08/20 19:15 01/09/20 04:14 / Sodium Chloride IV 0 mcg/kg/min .Q24H CANDI 0 mls/hr Titration Protocol 0.05 MCG/KG/MIN Insulin Aspart 0 unit 01/08/20 18:00 01/09/20 17:14 Insulin Aspart (Novolog) 100 Unit/Ml Vial SQ 2 unit Q6HR CANDI Administration Protocol Miscellaneous Information 1 each 01/09/20 04:41 Potassium Replacement Protocol 1 Each Misc MISCELLANE DAILY PRN Per Protocol Protocol Naloxone HCl 0.2 mg 01/08/20 08:14 Naloxone 0.4 Mg/Ml 1 Ml Vial IV Q2M PRN Opioid Reversal Pantoprazole Sodium 40 mg 01/08/20 09:00 01/09/20 09:00 Pantoprazole 40 Mg/10 Ml Vial IV 40 mg DAILY CANDI Administration Valproic Acid 500 mg 01/09/20 09:15 01/09/20 15:23 Valproic Acid Oral Soln 250 Mg/5 Ml Cup OG-TUBE 500 mg Q8HR CANDI Administration Objective - Vital Signs Vital signs: Vital Signs Temp 98.6 F 01/09/20 12:00 Pulse 103 H 01/09/20 14:00 Resp 26 H 01/09/20 14:00 BP 117/57 01/09/20 14:00 Pulse Ox 98 01/09/20 14:00 Intake & Output 01/08/20 01/09/20 01/09/20 18:59 06:59 18:59 Intake Total 3800.630 1776.115 2250 Output Total 535 325 210 Balance 830.385 5169.115 2040 Weight 108.862 kg 106.3 kg 106.3 kg Intake: IV 1530 1140 Piperacillin-Tazobactam 3 100 100 .375 gm In Sodium Chloride 0.9% 100 ml @ 25 mls/hr IVPB Q8HR CANDI Rx# :[id number] Sodium Chloride 0.9% 1, 1430 1040 000 ml @ 130 mls/hr IV . Q7H42M CANDI Rx#:[id number] Intake, IV Titration 1334.924 841.724 8828 Amount Clevidipine Butyrate 25 23.700 mg In Empty Bag 1 bag @ 1 MG/HR 2 mls/hr IV .Q24H CANDI Rx#:[id number] Norepinephrine 8 mg In 48.905 Sodium Chloride 0.9% 250 ml @ 0.05 MCG/KG/MIN 10. 532 mls/hr IV .Q24H CANDI Rx#:[id number] Piperacillin-Tazobactam 3 100 .375 gm In Sodium Chloride 0.9% 100 ml @ 25 mls/hr IVPB Q8HR CANDI Rx# :[id number] Potassium Chloride 20 meq 100 100 In Water For Injection 1 100ml.bag @ 50 mls/hr IVPB Q2H CANDI Rx#: [id number] Sodium Chloride 0.9% 1, 1040 130 000 ml @ 130 mls/hr IV . Q7H42M CANDI Rx#:[id number] Sodium Chloride 0.9% 1, 1000 000 ml @ 999 mls/hr IV . Q1H1M ONE Rx#:[id number] propofoL 1,000 mg In 171.224 210.210 Empty Bag 1 bag @ Titrate IV .Q0M CANDI Rx#: [id number] Tube Feeding 10 Output: Urine 535 325 210 Other: Voiding Method Indwelling Catheter Indwelling Catheter ABP, PAP, CO, CI - Last Documented Arterial Blood Pressure 153/55 - Exam -GENERAL: The patient is intubated and sedated HEENT: Pupils are round and equally reacting to light. EOMI. No scleral icterus. No conjunctival pallor. Normocephalic, atraumatic. No pharyngeal erythema. No thyromegaly. CARDIOVASCULAR: S1 and S2 present. No murmurs, rubs, or gallops. -PULMONARY: Chest is clear to auscultation, no wheezing. Crepitation in the left side ABDOMEN: Soft, nontender, nondistended, normoactive bowel sounds. No palpable organomegaly. MUSCULOSKELETAL: No joint swelling or deformity. EXTREMITIES: No cyanosis, clubbing, or pedal edema. NEUROLOGICAL: Gross neurological examination did not reveal any focal deficits. SKIN: No rashes. No petechiae - Labs CBC & Chem 7: 01/09/20 03:45 01/09/20 03:45 Labs: Abnormal Lab Results - Last 24 Hours (Table) 01/08/20 01/08/20 01/09/20 Range/Units 18:07 23:39 03:45 RBC 3.20 L (3.80-5.40) m/uL Hgb 10.8 L D (11.4-16.0) gm/dL Hct 32.1 L (34.0-46.0) % MCV 100.4 H (80.0-100.0) fL Plt Count 126 L (150-450) k/uL Lymphocytes # (Manual) 0.94 L (1.0-4.8) k/uL Metamyelocytes # (Man) 0.16 H (0) k/uL ABG pO2 (83-108) mmHg ABG Total CO2 (19-24) mmol/L ABG O2 Saturation (94-97) % Potassium (3.5-5.1) mmol/L Chloride (98-107) mmol/L Glucose (74-99) mg/dL POC Glucose (mg/dL) 275 H 222 H (75-99) mg/dL Urine Appearance (Clear) Urine Protein (Negative) Amorphous Sediment (None) /hpf Urine Mucus (None) /hpf 01/09/20 01/09/20 01/09/20 Range/Units 03:45 05:14 05:33 RBC (3.80-5.40) m/uL Hgb (11.4-16.0) gm/dL Hct (34.0-46.0) % MCV (80.0-100.0) fL Plt Count (150-450) k/uL Lymphocytes # (Manual) (1.0-4.8) k/uL Metamyelocytes # (Man) (0) k/uL ABG pO2 142 H (83-108) mmHg ABG Total CO2 26 H (19-24) mmol/L ABG O2 Saturation 99.7 H (94-97) % Potassium 3.2 L (3.5-5.1) mmol/L Chloride 109 H (98-107) mmol/L Glucose 205 H (74-99) mg/dL POC Glucose (mg/dL) 207 H (75-99) mg/dL Urine Appearance (Clear) Urine Protein (Negative) Amorphous Sediment (None) /hpf Urine Mucus (None) /hpf 01/09/20 01/09/20 Range/Units 10:15 11:48 RBC (3.80-5.40) m/uL Hgb (11.4-16.0) gm/dL Hct (34.0-46.0) % MCV (80.0-100.0) fL Plt Count (150-450) k/uL Lymphocytes # (Manual) (1.0-4.8) k/uL Metamyelocytes # (Man) (0) k/uL ABG pO2 (83-108) mmHg ABG Total CO2 (19-24) mmol/L ABG O2 Saturation (94-97) % Potassium (3.5-5.1) mmol/L Chloride (98-107) mmol/L Glucose (74-99) mg/dL POC Glucose (mg/dL) 195 H (75-99) mg/dL Urine Appearance Turbid H (Clear) Urine Protein 1+ H (Negative) Amorphous Sediment Many H (None) /hpf Urine Mucus Rare H (None) /hpf Microbiology - Last 24 Hours (Table) 01/08/20 08:00 Gram Stain - Preliminary Sputum Sputum Culture - Final Haemophilus species Assessment and Plan Assessment: Acute left lung pneumonia, most likely healthcare acquired pneumonia Acute hypoxic respiratory failure, needing intubation and mechanical ventilation Elevated lactic acid Dementia Diabetes mellitus Hypertension Chronic venous stasis ulcers and bilateral leg edema Frequent falls History of anxiety, depression and schizoaffective disorder History of urinary incontinence Plan: This is a pleasant 64 years old female who presents with left pneumonia and respiratory failure. Continue with Zosyn. Follow-up sputum culture results. Follow-up recommendation by pulmonary team service. Continue with insulin sliding scale. Labs and medication were reviewed.. Continue same treatment. Continue with symptomatic treatment. Resume home medication. Monitor lytes and vitals. DVT and GI prophylaxis. Further recommendations depends on the clinical course of the patient DVT prophylaxis: Subcutaneou Lovenox GI Prophylaxis: Ppi Prognosis is guarded
[2020-01-09] MEDS: NOREPINEPHRINE 8 MG in SODIUM CHLORIDE 0.9% 250 ML IV SCH (20:23)
[2020-01-09 23:44] LABS: Glucose,Whole Blood 173 mg/dL (75-99)
[2020-01-10] MEDS: IPRATROPIUM-ALBUTEROL 3 ML NEB INHALATION SCH ×6 (00:05→19:15)
[2020-01-10] MEDS: SODIUM CHLORIDE 0.9% 1,000 ML IV SCH ×2 (04:01→16:02)
[2020-01-10 04:21] LABS: ABG Base Excess -2.8 mmol/L; ABG HCO3 22 mmol/L (21-25); ABG Oxygen Saturation 98.9 % (94-97); ABG PCO2 37 mmHg (35-45); ABG PH 7.39 (7.35-7.45); ABG PO2 109 mmHg (83-108); ABG TCO2 23 mmol/L (19-24); Allen Test Performed? Yes
[2020-01-10 04:33] LABS: Basophils % (A) 0 %; Eosinophils # (A) 0.1 k/uL (0-0.7); Eosinophils % (A) 1 %; HCT 30.8 % (34.0-46.0); HGB 10.1 gm/dL (11.4-16.0); Lymphocytes # (A) 1.4 k/uL (1.0-4.8); Lymphocytes % (A) 17 %; MCH 33.6 pg (25.0-35.0); MCHC 32.8 g/dL (31.0-37.0); MCV 102.4 fL (80.0-100.0); Macrocytosis Slight; Mean Platelet Volume 7.4; Monocytes # (A) 0.4 k/uL (0-1.0); Monocytes % (A) 5 %; Neutrophils # (A) 6.3 k/uL (1.3-7.7); Neutrophils % (A) 76 %; Platelet Count 117 k/uL (150-450); RBC 3.01 m/uL (3.80-5.40); RDW 13.1 % (11.5-15.5); WBC 8.3 k/uL (3.8-10.6)
[2020-01-10 04:45] LABS: African American GFR (CKD) >90 (>60 ml/min/1.73 sqM); Anion Gap 4 mmol/L; Blood Urea Nitrogen 14 mg/dL (7-17); Calcium 8.5 mg/dL (8.4-10.2); Carbon Dioxide 22 mmol/L (22-30); Chloride 113 mmol/L (98-107); Glucose 229 mg/dL (74-99); Non-African American GFR(CKD) >90 (>60 ml/min/1.73 sqM); Potassium 3.5 mmol/L (3.5-5.1); Sodium 139 mmol/L (137-145)
[2020-01-10] MEDS: POTASSIUM BICARBONATE/CIT AC 20 MEQ TABLET.EFF NG-TUBE SCH ×2 (05:15→05:58)
[2020-01-10 05:56] LABS: Glucose,Whole Blood 243 mg/dL (75-99)
[2020-01-10] MEDS: INSULIN ASPART (NovoLOG) 100 UNIT/ML VIAL SQ SCH ×4 (05:58→23:48)
--- NOTE | 2020-01-10 07:55 | XR ---
EXAMINATION TYPE: XR chest 1V DATE OF EXAM: 01/10/2020 CLINICAL HISTORY: Difficulty breathing and pneumonia progress study. TECHNIQUE: Single AP portable semiupright view of the chest is obtained. COMPARISON: Chest x-ray from one day earlier and older studies. FINDINGS: Stable endotracheal and orogastric tubes. Stable left internal jugular central venous cath eter. Persistent left mid to basilar opacity silhouetting left hemidiaphragm. New patchy right medial basil ar opacity. Upper lungs remain clear. Cardiac silhouette size stable and within normal limits. Osseou s structures are intact. IMPRESSION: Persistent left mid to lower lung acute infiltrate and/or atelectasis with suspected sma ll left pleural effusion. Developing patchy medial right basilar acute atelectasis and/or infiltrate noted.
[2020-01-10] MEDS: PIPERACILLIN-TAZOBACTAM 3.375 GM in SODIUM CHLORIDE 0.9% 100 ML IVPB SCH ×3 (08:14→23:36)
[2020-01-10] MEDS: VALPROIC ACID ORAL SOLN 250 MG/5 ML CUP OG-TUBE SCH ×3 (08:15→23:36)
[2020-01-10] MEDS: CHLORHEXIDINE GLUCONATE 15 ML CUP MUCOUS MEM SCH ×2 (09:02→22:02)
[2020-01-10] MEDS: PANTOPRAZOLE 40 MG/10 ML VIAL IV SCH (09:02)
[2020-01-10] MEDS: ENOXAPARIN 40 MG/0.4 ML SYRINGE SQ SCH (09:02)
[2020-01-10] MEDS: HALOPERIDOL ORAL SOLN 10 MG/5 ML CUP OG-TUBE SCH ×2 (09:03→22:02)
--- NOTE | 2020-01-10 09:53 | P.PN ---
Subjective History of Present Illness This is a pleasant 64 years old female with past medical history of dementia, diabetes mellitus, hypertension, chronic venous stasis of both lower extremities with leg edema, frequent falls. Anxiety, depression and schizoaffective disorder. History of urinary incontinence. Patient is from [facility] Normally she is oriented to time and place and person. Patient got intubated and emergency room and information could not be obtained from patient. Was obtained from medical records and staff. She was transferred from [facility] for pneumonia and hypoxia. She had fever and cough and. She is tachycardic with heart rate 133-142, blood pressure 164/68, she had low- grade fever of 100.3. Left showing unremarkable CBC, BMP and liver enzymes. Lactic acid is elevated to 3.0-3.8 Chest x-ray: Showing worsening left midlung acute infiltrate, endotracheal tube In the emergency room patient was started on Tylenol, bronchodilator and Zosyn 01/09/2020 Patient remains intubated in the ICU. She is not undergoing sedation holiday [place] and trial reduction still needs high PEEP of 10. Vitals: Blood pressure looks more stable. Left showing evidence of hemodilution. Potassium 3.2, been replaced. Sugar is slightly elevated but acceptable. Oral tube feeding is started. She remains on Zosyn and normal saline at 1 30 L/h. No need for pressors 01/10/2020 Patient intubated and sedated in the ICU, she is undergoing sedation holiday, her PEEP is down to 5 however she is tachypneic more than 30-35 breath per minute. She might need to be staying intubated today. Slightly tachycardic also. Labs are reviewed including CBC and BMP, Sugar controlled slightly on the high side. She culture is growing Haemophilus influenzaeand sensitivity is pending. Patient is currently on Zosyn, normal saline floor to 75 mL/h review of system: N/a Active Medications Generic Name Dose Route Start Last Admin Trade Name Freq PRN Reason Stop Dose Admin Acetaminophen 650 mg 01/08/20 16:31 01/08/20 17:11 Acetaminophen Tab 325 Mg Tab PO 650 mg Q6HR PRN Administration Fever and/ or MILD Pain Albuterol/Ipratropium 3 ml 01/08/20 12:00 01/10/20 07:44 Ipratropium-Albuterol 3 Ml Neb INHALATION 3 ml RT-Q4H CANDI Administration Chlorhexidine Gluconate 15 ml 01/10/20 09:00 01/10/20 09:02 Chlorhexidine Gluconate 15 Ml Cup MUCOUS MEM 15 ml BID CANDI Administration Enoxaparin Sodium 40 mg 01/08/20 09:00 01/10/20 09:02 Enoxaparin 40 Mg/0.4 Ml Syringe SQ 40 mg DAILY CANDI Administration Haloperidol Lactate 5 mg 01/09/20 09:15 01/10/20 09:03 Haloperidol Oral Soln 10 Mg/5 Ml Cup OG-TUBE 5 mg BID CANDI Administration Hydromorphone HCl 1 mg 01/08/20 18:15 Hydromorphone 1 Mg/Ml 1 Ml Syringe IVP Q2HR PRN MODERATE TO SEVERE Pain Sodium Chloride 1,000 mls @ 75 mls/hr 01/08/20 07:00 01/10/20 04:01 Saline 0.9% IV 130 mls/hr .[id number] CANDI Administration Piperacillin Sod/Tazobactam 100 mls @ 25 mls/hr 01/08/20 16:00 01/10/20 08:14 Sod 3.375 gm/ Sodium Chloride IVPB 25 mls/hr Q8HR CANDI Administration Propofol 1,000 mg/ IV Solution 100 mls @ 0 mls/hr 01/08/20 12:15 01/10/20 08:40 IV 20 mcg/kg/min .Q0M CANDI 12.756 mls/hr Titration Protocol Titrate Norepinephrine Bitartrate 8 mg 258 mls @ 10.532 mls/hr 01/08/20 19:15 01/10/20 07:45 / Sodium Chloride IV 0 mcg/kg/min .Q24H CANDI 0 mls/hr Titration Protocol 0.05 MCG/KG/MIN Insulin Aspart 0 unit 01/08/20 18:00 01/10/20 05:58 Insulin Aspart (Novolog) 100 Unit/Ml Vial SQ 5 unit Q6HR CANDI Administration Protocol Miscellaneous Information 1 each 01/09/20 04:41 Potassium Replacement Protocol 1 Each Misc MISCELLANE DAILY PRN Per Protocol Protocol Naloxone HCl 0.2 mg 01/08/20 08:14 Naloxone 0.4 Mg/Ml 1 Ml Vial IV Q2M PRN Opioid Reversal Pantoprazole Sodium 40 mg 01/08/20 09:00 01/10/20 09:02 Pantoprazole 40 Mg/10 Ml Vial IV 40 mg DAILY CANDI Administration Valproic Acid 500 mg 01/09/20 09:15 01/10/20 08:15 Valproic Acid Oral Soln 250 Mg/5 Ml Cup OG-TUBE 500 mg Q8HR CANDI Administration Objective - Vital Signs Vital signs: Vital Signs Temp 98.2 F 01/10/20 08:00 Pulse 114 H 01/10/20 09:00 Resp 34 H 01/10/20 09:00 BP 161/104 01/10/20 08:00 Pulse Ox 96 01/10/20 09:00 Intake & Output 01/09/20 01/10/20 01/10/20 18:59 06:59 18:59 Intake Total 3030.788 2249.340 672.331 Output Total 315 470 155 Balance 2715.788 1779.340 517.331 Weight 106.3 kg 109.2 kg Intake: IV 1660 1726 398 Piperacillin-Tazobactam 3 100 100 100 .375 gm In Sodium Chloride 0.9% 100 ml @ 25 mls/hr IVPB Q8HR [facility] Rx# :[id number] Pressure Bags 66 18 Sodium Chloride 0.9% 1, 1560 1560 280 000 ml @ 130 mls/hr IV . Q7H42M [facility] Rx#:[id number] Intake, IV Titration 1280.788 283.340 106.331 Amount Norepinephrine 8 mg In 26.470 4.283 Sodium Chloride 0.9% 250 ml @ 0.05 MCG/KG/MIN 10. 532 mls/hr IV .Q24H [facility] Rx#:[id number] Potassium Chloride 20 meq 100 In Water For Injection 1 100ml.bag @ 50 mls/hr IVPB Q2H [facility] Rx#: [id number] Sodium Chloride 0.9% 1, 1000 000 ml @ 999 mls/hr IV . Q1H1M [facility] Rx#:[id number] propofoL 1,000 mg In 180.788 256.87 102.048 Empty Bag 1 bag @ Titrate IV .Q0M [facility] Rx#: [id number] Tube Feeding 60 240 98 Other 30 70 Output: Urine 315 470 155 Other: Voiding Method Indwelling Catheter Indwelling Catheter Indwelling Catheter ABP, PAP, CO, CI - Last Documented Arterial Blood Pressure 160/76 - Exam -GENERAL: The patient is intubated and sedated HEENT: Pupils are round and equally reacting to light. EOMI. No scleral icterus. No conjunctival pallor. Normocephalic, atraumatic. No pharyngeal erythema. No thyromegaly. CARDIOVASCULAR: S1 and S2 present. No murmurs, rubs, or gallops. -PULMONARY: Chest is clear to auscultation, no wheezing. Crepitation in the left side ABDOMEN: Soft, nontender, nondistended, normoactive bowel sounds. No palpable organomegaly. MUSCULOSKELETAL: No joint swelling or deformity. EXTREMITIES: No cyanosis, clubbing, or pedal edema. NEUROLOGICAL: Gross neurological examination did not reveal any focal deficits. SKIN: No rashes. No petechiae - Labs CBC & Chem 7: 01/10/20 04:10 01/10/20 04:10 Labs: Abnormal Lab Results - Last 24 Hours (Table) 01/09/20 01/09/20 01/09/20 Range/Units 03:45 10:15 11:48 RBC (3.80-5.40) m/uL Hgb (11.4-16.0) gm/dL Hct (34.0-46.0) % MCV (80.0-100.0) fL Plt Count (150-450) k/uL ABG pO2 (83-108) mmHg ABG O2 Saturation (94-97) % Chloride (98-107) mmol/L Glucose (74-99) mg/dL POC Glucose (mg/dL) 195 H (75-99) mg/dL Hemoglobin A1c 8.3 H (4.0-6.0) % Urine Appearance Turbid H (Clear) Urine Protein 1+ H (Negative) Amorphous Sediment Many H (None) /hpf Urine Mucus Rare H (None) /hpf 01/09/20 01/09/20 01/10/20 Range/Units 16:50 23:42 04:10 RBC 3.01 L (3.80-5.40) m/uL Hgb 10.1 L (11.4-16.0) gm/dL Hct 30.8 L (34.0-46.0) % MCV 102.4 H (80.0-100.0) fL Plt Count 117 L (150-450) k/uL ABG pO2 (83-108) mmHg ABG O2 Saturation (94-97) % Chloride (98-107) mmol/L Glucose (74-99) mg/dL POC Glucose (mg/dL) 157 H 173 H (75-99) mg/dL Hemoglobin A1c (4.0-6.0) % Urine Appearance (Clear) Urine Protein (Negative) Amorphous Sediment (None) /hpf Urine Mucus (None) /hpf 01/10/20 01/10/20 01/10/20 Range/Units 04:10 04:18 05:54 RBC (3.80-5.40) m/uL Hgb (11.4-16.0) gm/dL Hct (34.0-46.0) % MCV (80.0-100.0) fL Plt Count (150-450) k/uL ABG pO2 109 H (83-108) mmHg ABG O2 Saturation 98.9 H (94-97) % Chloride 113 H (98-107) mmol/L Glucose 229 H (74-99) mg/dL POC Glucose (mg/dL) 243 H (75-99) mg/dL Hemoglobin A1c (4.0-6.0) % Urine Appearance (Clear) Urine Protein (Negative) Amorphous Sediment (None) /hpf Urine Mucus (None) /hpf Microbiology - Last 24 Hours (Table) 01/08/20 08:00 Gram Stain - Final Sputum Sputum Culture - Preliminary Haemophilus influenzae Assessment and Plan Assessment: Acute left lung pneumonia, most likely healthcare acquired pneumonia Acute hypoxic respiratory failure, needing intubation and mechanical ventilation Elevated lactic acid Dementia Diabetes mellitus Hypertension Chronic venous stasis ulcers and bilateral leg edema Frequent falls History of anxiety, depression and schizoaffective disorder History of urinary incontinence Plan: This is a pleasant 64 years old female who presents with left pneumonia and respiratory failure. Continue with Zosyn. Follow-up sputum culture sensitivity results. Follow-up recommendation by pulmonary team service. Patient undergoing sedation holiday by pulmonary team Continue with insulin sliding scale. Labs and medication were reviewed.. Continue same treatment. Continue with symptomatic treatment. Resume home medication. Monitor lytes and vitals. DVT and GI prophylaxis. Further recommendations depends on the clinical course of the patient DVT prophylaxis: Subcutaneou Lovenox GI Prophylaxis: Ppi Prognosis is guarded
[2020-01-10 12:04] LABS: Glucose,Whole Blood 286 mg/dL (75-99)
[2020-01-10] MEDS ORDERED: POTASSIUM BICARBONATE/CIT AC 20 MEQ TABLET.EFF NG-TUBE SCH (13:00)
--- NOTE | 2020-01-10 14:50 | PN ---
PROGRESS NOTE PULMONARY/CRITICAL CARE PROGRESS NOTE: DATE OF SERVICE: 01/10/2020 CRITICAL CARE TIME: 34 minutes. This is a 64-year-old female who presented to the [facility] Emergency Room via EMS from [facility]. The patient was evaluated there for pneumonia and transferred down. She saw Dr. Antonio in our the ER. The patient was demonstrating signs and symptoms of impending respiratory failure with hypoxemia. The patient was electively intubated by that physician. The patient remains on the ventilator. I did have a conversation with her guardian. Currently, the patient is a FULL CODE. She was going to talk to other family members about code status. Currently, the patient is on the volume assist-control modality rate of 20, tidal volume 350, FiO2 40% to be dropped to 35%, PEEP of 5. Blood gases show PO2 of 109, pCO2 of 37, and a pH of 7.38. The patient remains on propofol for sedation at 40 mcg/kg per minute. Norepinephrine has been turned off. Although it has been on and off through the night, saline is running at 130 mL an hour to be dropped down to 75 mL an hour and Vital high-protein is running at 34 mL and hour which is goal. Today, because the patient is doing better, she will have a daily interruption of sedation and spontaneous breathing trial. Her sputum samples were positive for Haemophilus. She is currently on Zosyn. She has been stable overnight. Current vital signs, good temperature 98.2, heart rate 105, respiratory rate between 29 and 30 breaths per minute. Blood pressure 160/76, CVP is 8 saturations are 96%. Appears in no acute distress. HEENT: Examination is grossly unremarkable. There is no orally placed endotracheal tube and NG tube. NECK: Supple, full range of motion. No adenopathy. Neck veins are flat. CARDIOVASCULAR: Examination reveals regular rhythm and rate. S1, S2 normal. Heart rate about 100 beats per minute. She is in sinus rhythm. Heart sounds are distant. LUNGS: Reveal diffuse coarse rhonchi. Breath sounds equal. No wheezes or crackles. ABDOMEN: Soft, bowel sounds are heard. ABDOMEN: Obese. EXTREMITIES: Intact. Slight edema noted. No cyanosis or clubbing. SKIN: Without rash. NEUROLOGIC: Examination is difficult to assess at this point because she is currently sedated on propofol. LABS: Reviewed. White count 8.3, hemoglobin 10.1, hematocrit 30.8, platelet count 117,000. Sodium 139, potassium 3.5, chloride is 113, CO2 is 22, anion gap is 4. BUN and creatinine were 14 and 0.66. Microbiology showing Haemophilus in the sputum. The most recent chest x-ray dated January 09 shows left mid to lower lung, acute infiltrate with atelectasis. There is a small left-sided pleural effusion. There is also developing patchy medial right basilar infiltrate or atelectasis. CURRENT MEDICATIONS: Reviewed. Currently, the patient is on Tylenol, Peridex, Lovenox, Haldol, Dilaudid, insulin, DuoNeb, Narcan, Protonix, Zosyn, potassium replacement, propofol and saline IV. She is also on Depakene syrup. ASSESSMENT: 1. Acute hypoxemic respiratory failure secondary to bibasilar pneumonia, left greater than right, status post intubation and mechanical ventilation on January 08, 2020. 2. History of diabetes mellitus. 3. Vague history of hypertension. 4. History of dementia. 5. Vitamin D deficiency. 6. Obesity. 7. Vague skin disorder. 8. General medical debility. PLAN: The patient will have a daily interruption of sedation and possibly a spontaneous breathing trial with 5 of pressure support, 5 CPAP. Norepinephrine has been turned off. Propofol will be discontinued. She will continue tube feeds. I will be presented with a set of weaning parameters and a cuff leak test. After about 30 minute, spontaneous breathing trial. If appropriate, the patient will be extubated. No additional recommendations are made. We will continue to follow. Prognosis is guarded. CRITICAL CARE TIME: 34 minutes. MMODL / IJN: [id number] /
[2020-01-10 18:06] LABS: Glucose,Whole Blood 264 mg/dL (75-99)
[2020-01-10] MEDS: NOREPINEPHRINE 8 MG in SODIUM CHLORIDE 0.9% 250 ML IV SCH (18:15)
[2020-01-10 23:43] LABS: Glucose,Whole Blood 244 mg/dL (75-99)
[2020-01-11] MEDS: IPRATROPIUM-ALBUTEROL 3 ML NEB INHALATION SCH ×6 (01:23→19:21)
[2020-01-11] MEDS: SODIUM CHLORIDE 0.9% 1,000 ML IV SCH ×2 (04:36→15:05)
[2020-01-11 05:05] LABS: ABG Base Excess -0.6 mmol/L; ABG HCO3 24 mmol/L (21-25); ABG Oxygen Saturation 96.2 % (94-97); ABG PCO2 35 mmHg (35-45); ABG PH 7.44 (7.35-7.45); ABG PO2 74 mmHg (83-108); ABG TCO2 25 mmol/L (19-24); Allen Test Performed? Yes
[2020-01-11 05:26] LABS: Basophils % (A) 0 %; Eosinophils # (A) 0.1 k/uL (0-0.7); Eosinophils % (A) 1 %; HCT 28.4 % (34.0-46.0); Lymphocytes % (A) 16 %; MCH 32.6 pg (25.0-35.0); MCHC 31.8 g/dL (31.0-37.0); MCV 102.4 fL (80.0-100.0); Macrocytosis Slight; Mean Platelet Volume 7.2; Monocytes # (A) 0.3 k/uL (0-1.0); Monocytes % (A) 5 %; Neutrophils # (A) 4.5 k/uL (1.3-7.7); Neutrophils % (A) 77 %; Platelet Count 126 k/uL (150-450); RBC 2.77 m/uL (3.80-5.40); RDW 13.4 % (11.5-15.5); WBC 5.9 k/uL (3.8-10.6)
[2020-01-11 05:40] LABS: African American GFR (CKD) >90 (>60 ml/min/1.73 sqM); Anion Gap 1 mmol/L; Blood Urea Nitrogen 14 mg/dL (7-17); Calcium 8.4 mg/dL (8.4-10.2); Carbon Dioxide 25 mmol/L (22-30); Chloride 113 mmol/L (98-107); Glucose 228 mg/dL (74-99); Non-African American GFR(CKD) >90 (>60 ml/min/1.73 sqM); Potassium 3.9 mmol/L (3.5-5.1); Sodium 139 mmol/L (137-145)
[2020-01-11] MEDS ORDERED: POTASSIUM BICARBONATE/CIT AC 20 MEQ TABLET.EFF NG-TUBE SCH (06:00)
[2020-01-11 06:13] LABS: Glucose,Whole Blood 242 mg/dL (75-99)
[2020-01-11] MEDS: INSULIN ASPART (NovoLOG) 100 UNIT/ML VIAL SQ SCH ×3 (06:18→17:56)
[2020-01-11] MEDS ORDERED: INSULIN DETEMIR (LEVEMIR) 100 UNIT/ML SYR SQ SCH (07:00)
[2020-01-11] MEDS: PIPERACILLIN-TAZOBACTAM 3.375 GM in SODIUM CHLORIDE 0.9% 100 ML IVPB SCH ×2 (07:56→15:30)
[2020-01-11] MEDS: VALPROIC ACID ORAL SOLN 250 MG/5 ML CUP OG-TUBE SCH ×2 (07:57→15:30)
[2020-01-11] MEDS ORDERED: FUROSEMIDE 10 MG/ML 4 ML VIAL IV STA (08:18)
[2020-01-11] MEDS: HALOPERIDOL ORAL SOLN 10 MG/5 ML CUP OG-TUBE SCH ×2 (08:37→22:24)
[2020-01-11] MEDS: CHLORHEXIDINE GLUCONATE 15 ML CUP MUCOUS MEM SCH ×2 (08:37→22:25)
[2020-01-11] MEDS: ENOXAPARIN 40 MG/0.4 ML SYRINGE SQ SCH (08:37)
[2020-01-11] MEDS: PANTOPRAZOLE 40 MG/10 ML VIAL IV SCH (08:38)
--- NOTE | 2020-01-11 09:28 | XR ---
EXAMINATION TYPE: XR chest 1V DATE OF EXAM: 01/11/2020 COMPARISON: 01/10/2020 INDICATION: Pneumonia TECHNIQUE: Single frontal view of the chest is obtained. FINDINGS: The heart size is normal. The pulmonary vasculature is normal. There is a infiltrate in the left lower lobe. There is silhouetting left diaphragm. Small pleural eff usion may be present. There is developing infiltrate and silhouetting of the right diaphragm. Endotracheal tube tip is above the mario. Nasogastric tube transverses the [id number] has tip wit hin the abdomen. Left central venous catheter is present with tip in the right atrium. IMPRESSION: 1. Left lower lobe infiltrate. Correlate for worsening pneumonia. 2. Some developing infiltrate is at the right base. Consider atelectasis or pneumonia. 3. Lines and catheters discussed above.
[2020-01-11 11:39] LABS: Glucose,Whole Blood 279 mg/dL (75-99)
--- NOTE | 2020-01-11 14:49 | PN ---
PROGRESS NOTE PULMONARY/CRITICAL CARE PROGRESS NOTE: DATE OF SERVICE: 01/11/2020 CRITICAL CARE TIME: 33 minutes. This is a 64-year-old female who was admitted to the [facility] Emergency Room via EMS from [facility]. The patient was evaluated there for pneumonia and transferred down to our ER where he saw Dr. Jma Antonio. The patient was demonstrating signs and symptoms of impending respiratory failure with hypoxemia and the patient was electively intubated by our ER physician. Currently, the patient remains on the ventilator and really has not made significant progress. Yesterday, she had a daily interruption of sedation. Unfortunately, she failed. Respiratory rates were quite high and she was very unstable, had to be placed back on the ventilator and resedated. Will give her another trial of a daily interruption of sedation today and possible spontaneous breathing trial. Currently, she is on the volume assist-control mode rate of 20, tidal volume 350, FiO2 of 35%, PEEP of 5. Blood gases show a pO2 of 74, pCO2 of 35 and a pH 7.44. She is getting Zosyn for Haemophilus in the sputum. We are going to give her additional Lasix 40 mg IV push. We are going to talk to the guardian about code status. Currently, she is on Diprivan at 30 mcg/minute, saline at 75 mL an hour and Vital high-protein at 34 mL an hour which is goal. She had a pretty uneventful night other than failing her daily interruption of sedation and her spontaneous breathing trial yesterday. Current vital signs are reviewed. Temperature is 98.3, heart rate 90, respiratory rate 38, blood pressure 153/80 mean 104, saturations 95% on 35% FiO2. CVP 6. Appears in no acute distress. Currently sedated. HEENT: Examination is grossly unremarkable. She has got an orally placed endotracheal tube and NG tube. NECK: Supple, full range of motion. No adenopathy or thyromegaly. Neck veins are flat. CARDIOVASCULAR: Examination reveals regular rhythm and rate. She is nearly tachycardic. Heart rate is in the high 90s. LUNGS: Reveal diffuse coarse rhonchi. Breath sounds are equal. No wheezes or crackles. ABDOMEN: Soft, bowel sounds are noted. EXTREMITIES: Intact. Mild edema. SKIN: Without rash. NEUROLOGIC: Examination cannot be adequately assessed. LABS: Reviewed. White count 5.9, hemoglobin 9, hematocrit 28.4, platelet count 126,000, blood gases again show a pO2 of 74, pCO2 of 35 and a pH of 7.44. Blood gases consistent with metabolic and mild respiratory alkalosis. Sodium 139, potassium 3.9, chloride is 113, CO2 25, anion gap is 1, BUN and creatinine were 14 and 0.6. Microbiology is positive for sputum from January 07 showing Haemophilus influenzae. For that, she is on Zosyn. CHEST X-RAY: Done today shows a left lower lobe infiltrate, which is possibly worse in the prior x- ray. There is also some developing infiltrate at the right lung base. CURRENT MEDICATIONS: Reviewed. She is currently on Tylenol, chlorhexidine, Lovenox Haldol, Dilaudid, insulin, DuoNeb, Narcan, Protonix, Zosyn, potassium replacement, propofol and Depakene syrup. ASSESSMENT: 1. Acute hypoxemic respiratory failure, secondary to bibasilar pneumonia, left greater than right, status post intubation and mechanical ventilation on January 08, 2020 here at [facility] in the ER. 2. History of diabetes mellitus. 3. Vague history of hypertension. 4. History of dementia. 5. Vitamin D deficiency. 6. Obesity. 7. Vague skin disorder. 8. General medical debility. PLAN: The patient will again have a daily interruption of sedation. Will attempt another spontaneous breathing trial. The patient may or may not tolerate that. We are going to give her some additional Lasix 40 mg IV push. Will see if we can address code status again with a guardian. She is currently on Zosyn for Haemophilus influenzae in the sputum. She remains on nutrition with Vital high-protein at goal and propofol at 30 mcg/kg per minute. Blood gases are reasonable. Additional recommendations and suggestions are forthcoming. Should everything want to be done by the guardian, will shoot for tracheostomy and PEG tube placement on Wednesday. MMODL / IJN: [id number] / [id number]
[2020-01-11 17:54] LABS: Glucose,Whole Blood 251 mg/dL (75-99)
--- NOTE | 2020-01-11 21:41 | P.PN ---
Subjective History of Present Illness This is a pleasant 64 years old female with past medical history of dementia, diabetes mellitus, hypertension, chronic venous stasis of both lower extremities with leg edema, frequent falls. Anxiety, depression and schizoaffective disorder. History of urinary incontinence. Patient is from [facility]. Normally she is oriented to time and place and person. Patient got intubated and emergency room and information could not be obtained from patient. Was obtained from medical records and staff. She was transferred from [facility] for pneumonia and hypoxia. She had fever and cough and. She is tachycardic with heart rate 133-142, blood pressure 164/68, she had low- grade fever of 100.3. Left showing unremarkable CBC, BMP and liver enzymes. Lactic acid is elevated to 3.0-3.8 Chest x-ray: Showing worsening left midlung acute infiltrate, endotracheal tube In the emergency room patient was started on Tylenol, bronchodilator and Zosyn 01/09/2020 Patient remains intubated in the ICU. She is not undergoing sedation holiday [place] and trial reduction still needs high PEEP of 10. Vitals: Blood pressure looks more stable. Left showing evidence of hemodilution. Potassium 3.2, been replaced. Sugar is slightly elevated but acceptable. Oral tube feeding is started. She remains on Zosyn and normal saline at 1 30 L/h. No need for pressors 01/10/2020 Patient intubated and sedated in the ICU, she is undergoing sedation holiday, her PEEP is down to 5 however she is tachypneic more than 30-35 breath per minute. She might need to be staying intubated today. Slightly tachycardic also. Labs are reviewed including CBC and BMP, Sugar controlled slightly on the high side. She culture is growing Haemophilus influenzaeand sensitivity is pending. Patient is currently on Zosyn, normal saline floor to 75 mL/h 01/11/2020 Patient underwent sedation holiday today however she could not tolerate it for more than one hour, she became tachypneic, tachycardic and agitated so she does not follow commands. Patient remains intubated currently and continue with same treatment for her pneumonia, she is on normal saline at 75 mL/h. Chest x-ray from today showing worsening left lower lobe pneumonia. Developing right pneumonia. We will call infectious disease consult for adjustment of antibiotics. Sputum culture growing Haemophilus influenzae, sensitivities pending. Increase in insulin to 10 units of Levemir for hyperglycemia. review of system: N/a Active Medications Generic Name Dose Route Start Last Admin Trade Name Freq PRN Reason Stop Dose Admin Acetaminophen 650 mg 01/08/20 16:31 01/08/20 17:11 Acetaminophen Tab 325 Mg Tab PO 650 mg Q6HR PRN Administration Fever and/ or MILD Pain Albuterol/Ipratropium 3 ml 01/08/20 12:00 01/11/20 19:21 Ipratropium-Albuterol 3 Ml Neb INHALATION 3 ml RT-Q4H [facility] Administration Chlorhexidine Gluconate 15 ml 01/10/20 09:00 01/11/20 08:37 Chlorhexidine Gluconate 15 Ml Cup MUCOUS MEM 15 ml BID [facility] Administration Enoxaparin Sodium 40 mg 01/08/20 09:00 01/11/20 08:37 Enoxaparin 40 Mg/0.4 Ml Syringe SQ 40 mg DAILY [facility] Administration Haloperidol Lactate 5 mg 01/09/20 09:15 01/11/20 08:37 Haloperidol Oral Soln 10 Mg/5 Ml Cup OG-TUBE 5 mg BID [facility] Administration Hydromorphone HCl 1 mg 01/08/20 18:15 Hydromorphone 1 Mg/Ml 1 Ml Syringe IVP Q2HR PRN MODERATE TO SEVERE Pain Sodium Chloride 1,000 mls @ 75 mls/hr 01/08/20 07:00 01/11/20 15:05 Saline 0.9% IV 75 mls/hr .[id number] [facility] Administration Piperacillin Sod/Tazobactam 100 mls @ 25 mls/hr 01/08/20 16:00 01/11/20 15:30 Sod 3.375 gm/ Sodium Chloride IVPB 25 mls/hr Q8HR [facility] Administration Propofol 1,000 mg/ IV Solution 100 mls @ 0 mls/hr 01/08/20 12:15 01/11/20 15:36 IV 30 mcg/kg/min .Q0M [facility] 19.134 mls/hr Titration Protocol Titrate Insulin Aspart 0 unit 01/08/20 18:00 01/11/20 17:56 Insulin Aspart (Novolog) 100 Unit/Ml Vial SQ 6 unit Q6HR [facility] Administration Protocol Insulin Detemir 8 unit 01/12/20 07:00 Insulin Detemir (Levemir) 100 Unit/Ml Syr SQ DAILY@0700 [facility] Miscellaneous Information 1 each 01/09/20 04:41 Potassium Replacement Protocol 1 Each Misc MISCELLANE DAILY PRN Per Protocol Protocol Naloxone HCl 0.2 mg 01/08/20 08:14 Naloxone 0.4 Mg/Ml 1 Ml Vial IV Q2M PRN Opioid Reversal Pantoprazole Sodium 40 mg 01/08/20 09:00 01/11/20 08:38 Pantoprazole 40 Mg/10 Ml Vial IV 40 mg DAILY [facility] Administration Valproic Acid 500 mg 01/09/20 09:15 01/11/20 15:30 Valproic Acid Oral Soln 250 Mg/5 Ml Cup OG-TUBE 500 mg Q8HR [facility]I Administration Objective - Vital Signs Vital signs: Vital Signs Temp 99.1 F 01/11/20 16:00 Pulse 80 01/11/20 19:00 Resp 30 H 01/11/20 19:00 BP 121/42 01/11/20 19:00 Pulse Ox 96 01/11/20 19:00 Intake & Output 01/11/20 01/11/20 01/12/20 06:59 18:59 06:59 Intake Total 4510.526 2054.833 115 Output Total 535 2880 35 Balance 1325.837 -989.167 80 Weight 115.8 kg Intake: IV 1072 972 81 Piperacillin-Tazobactam 3 100 .375 gm In Sodium Chloride 0.9% 100 ml @ 25 mls/hr IVPB Q8HR [facility] Rx# :[id number] Pressure Bags 72 72 6 Sodium Chloride 0.9% 1, 900 900 75 000 ml @ 75 mls/hr IV . [id number] [facility] Rx#:[id number] Intake, IV Titration 290.837 360.833 Amount Piperacillin-Tazobactam 3 200 .375 gm In Sodium Chloride 0.9% 100 ml @ 25 mls/hr IVPB Q8HR [facility] Rx# :[id number] propofoL 1,000 mg In 290.837 160.833 Empty Bag 1 bag @ Titrate IV .Q0M [facility] Rx#: [id number] Tube Feeding 408 408 34 Other 90 150 Output: Urine 535 2880 35 Other: Voiding Method Indwelling Catheter Indwelling Catheter ABP, PAP, CO, CI - Last Documented Arterial Blood Pressure 129/54 - Exam -GENERAL: The patient is intubated and sedated HEENT: Pupils are round and equally reacting to light. EOMI. No scleral icterus. No conjunctival pallor. Normocephalic, atraumatic. No pharyngeal erythema. No thyromegaly. CARDIOVASCULAR: S1 and S2 present. No murmurs, rubs, or gallops. -PULMONARY: Chest is clear to auscultation, no wheezing. Crepitation in the lef t side ABDOMEN: Soft, nontender, nondistended, normoactive bowel sounds. No palpable organomegaly. MUSCULOSKELETAL: No joint swelling or deformity. EXTREMITIES: No cyanosis, clubbing, or pedal edema. NEUROLOGICAL: Gross neurological examination did not reveal any focal deficits. SKIN: No rashes. No petechiae - Labs CBC & Chem 7: 01/11/20 04:42 01/11/20 04:42 Labs: Abnormal Lab Results - Last 24 Hours (Table) 01/10/20 01/11/20 01/11/20 Range/Units 23:41 04:42 04:42 RBC 2.77 L (3.80-5.40) m/uL Hgb 9.0 L (11.4-16.0) gm/dL Hct 28.4 L (34.0-46.0) % MCV 102.4 H (80.0-100.0) fL Plt Count 126 L (150-450) k/uL ABG pO2 (83-108) mmHg ABG Total CO2 (19-24) mmol/L Chloride 113 H (98-107) mmol/L Glucose 228 H (74-99) mg/dL POC Glucose (mg/dL) 244 H (75-99) mg/dL 01/11/20 01/11/20 01/11/20 Range/Units 05:00 06:11 11:38 RBC (3.80-5.40) m/uL Hgb (11.4-16.0) gm/dL Hct (34.0-46.0) % MCV (80.0-100.0) fL Plt Count (150-450) k/uL ABG pO2 74 L (83-108) mmHg ABG Total CO2 25 H (19-24) mmol/L Chloride (98-107) mmol/L Glucose (74-99) mg/dL POC Glucose (mg/dL) 242 H 279 H (75-99) mg/dL 01/11/20 Range/Units 17:53 RBC (3.80-5.40) m/uL Hgb (11.4-16.0) gm/dL Hct (34.0-46.0) % MCV (80.0-100.0) fL Plt Count (150-450) k/uL ABG pO2 (83-108) mmHg ABG Total CO2 (19-24) mmol/L Chloride (98-107) mmol/L Glucose (74-99) mg/dL POC Glucose (mg/dL) 251 H (75-99) mg/dL Microbiology - Last 24 Hours (Table) 01/09/20 10:30 Blood Culture - Preliminary Blood No Growth after 48 hours 01/08/20 08:00 Gram Stain - Final Sputum Sputum Culture - Final Haemophilus influenzae Assessment and Plan Assessment: Acute left lung pneumonia, with development of right pneumonia most likely healthcare acquired pneumonia, secondary to hemophilus influenzae Acute hypoxic respiratory failure, needing intubation and mechanical ventilation Elevated lactic acid Dementia Diabetes mellitus, with hyperglycemia Hypertension Chronic venous stasis ulcers and bilateral leg edema Frequent falls History of anxiety, depression and schizoaffective disorder History of urinary incontinence Plan: This is a pleasant 64 years old female who presents with left pneumonia and respiratory failure. Continue with Zosyn. Consult infectious disease. Follow- up sputum culture sensitivity results. Follow-up recommendation by pulmonary team service. Patient undergoing sedation holiday by pulmonary team Continue with insulin sliding scale and Levemir. Labs and medication were reviewed.. Continue same treatment. Continue with symptomatic treatment. Resume home medication. Monitor lytes and vitals. DVT and GI prophylaxis. Further recommendations depends on the clinical course of the patient DVT prophylaxis: Subcutaneou Lovenox GI Prophylaxis: Ppi Prognosis is guarded
[2020-01-12 00:11] LABS: Glucose,Whole Blood 230 mg/dL (75-99)
[2020-01-12] MEDS: INSULIN ASPART (NovoLOG) 100 UNIT/ML VIAL SQ SCH ×2 (01:22→07:16)
[2020-01-12] MEDS: VALPROIC ACID ORAL SOLN 250 MG/5 ML CUP OG-TUBE SCH (01:23)
[2020-01-12] MEDS: PIPERACILLIN-TAZOBACTAM 3.375 GM in SODIUM CHLORIDE 0.9% 100 ML IVPB SCH (01:24)
[2020-01-12] MEDS: SODIUM CHLORIDE 0.9% 1,000 ML IV SCH (01:25)
[2020-01-12] MEDS: IPRATROPIUM-ALBUTEROL 3 ML NEB INHALATION SCH ×4 (01:35→07:34)
[2020-01-12 04:41] LABS: HCT 28.8 % (34.0-46.0); HGB 9.5 gm/dL (11.4-16.0); MCH 33.5 pg (25.0-35.0); MCV 101.3 fL (80.0-100.0); Macrocytosis Slight; Mean Platelet Volume 7.2; Platelet Count 140 k/uL (150-450); RBC 2.84 m/uL (3.80-5.40); RDW 13.4 % (11.5-15.5); WBC 5.9 k/uL (3.8-10.6)
[2020-01-12 05:00] LABS: African American GFR (CKD) >90 (>60 ml/min/1.73 sqM); Anion Gap 0 mmol/L; Blood Urea Nitrogen 17 mg/dL (7-17); Calcium 8.2 mg/dL (8.4-10.2); Carbon Dioxide 26 mmol/L (22-30); Chloride 113 mmol/L (98-107); Glucose 217 mg/dL (74-99); Magnesium 1.8 mg/dL (1.6-2.3); Non-African American GFR(CKD) >90 (>60 ml/min/1.73 sqM); Sodium 139 mmol/L (137-145)
[2020-01-12 05:02] LABS: Potassium 3.6 mmol/L (3.5-5.1)
[2020-01-12 05:13] LABS: ABG Base Excess 2.2 mmol/L; ABG HCO3 26 mmol/L (21-25); ABG Oxygen Saturation 95.3 % (94-97); ABG PCO2 35 mmHg (35-45); ABG PH 7.48 (7.35-7.45); ABG PO2 70 mmHg (83-108); ABG TCO2 27 mmol/L (19-24); Allen Test Performed? Yes
[2020-01-12] MEDS ORDERED: Magnesium Replacement Protocol 1 EACH MISC MISCELLANE PRN (05:18)
[2020-01-12] MEDS ORDERED: POTASSIUM BICARBONATE/CIT AC 20 MEQ TABLET.EFF NG-TUBE SCH (06:00)
[2020-01-12] MEDS: MAGNESIUM SULFATE-D5W PMX 1 GM in DEXTROSE/WATER 1 100ML.BAG IVPB SCH ×2 (06:08→07:17)
[2020-01-12] MEDS ORDERED: INSULIN DETEMIR (LEVEMIR) 100 UNIT/ML SYR SQ SCH ×2 (07:00)
--- NOTE | 2020-01-12 07:02 | XR ---
EXAMINATION TYPE: XR chest 1V DATE OF EXAM: 01/12/2020 CLINICAL HISTORY: Difficulty breathing progress study. TECHNIQUE: Single AP portable semiupright view of the chest is obtained. COMPARISON: Chest x-ray from one day earlier and older studies. Outside CTA chest January 08, 2020. FINDINGS: Stable endotracheal and orogastric tubes. Stable left internal jugular central venous cath eter. Left mid to basilar opacity silhouetting left diaphragm perhaps slightly more prominent. New worsenin g medial to basilar right-sided opacity. Findings may be exaggerated by semiupright technique. Upper lungs show no pneumothorax. Cardiac silhouette size stable and within normal limits. Osseous structur es are intact. IMPRESSION: Persistent bilateral mid to lower lung acute infiltrate and/or atelectasis, some continue d right-sided progression is thought present from most recent study.
[2020-01-12 07:09] LABS: Glucose,Whole Blood 269 mg/dL (75-99)
[2020-01-12 07:25] LABS: Anisocytosis (M) Present; Band Neutrophils % 11 %; Eosinophils # (M) 0.06 k/uL (0-0.7); Lymphocytes # (M) 1.53 k/uL (1.0-4.8); Metamyelocytes # (M) 0.41 k/uL (0); Metamyelocytes % 7 %; Monocytes # (M) 0.18 k/uL (0-1.0); Neutrophils % (M) 53 %; Nucleated Red Blood Cells 0 /100 WBC (0-0); Polychromasia Present; Total Cells Counted 200
[2020-01-12] MEDS ORDERED: MORPHINE SULFATE 2 MG/ML SYRINGE IV PRN (08:54)
[2020-01-12] MEDS ORDERED: ONDANSETRON 4 MG/2 ML VIAL IVP PRN (08:54)
[2020-01-12] MEDS ORDERED: LORazepam 2 MG/ML INJ IV PRN (08:54)
[2020-01-12] MEDS ORDERED: SCOPOLAMINE 1.5MG/72HR PATCH TRANSDERM SCH (09:00)
[2020-01-12] MEDS ORDERED: MORPHINE SULFATE (100 MG/2 ML) 100 MG in SODIUM CHLORIDE 0.9% 100 ML IV SCH (09:00)
[2020-01-12 11:13] VITALS: BMI 45.9
--- NOTE | 2020-01-12 12:41 | PN ---
PROGRESS NOTE PULMONARY/CRITICAL CARE PROGRESS NOTE: DATE OF SERVICE: 01/12/2020 Critical care time 33 minutes. This is a 64-year-old female who was admitted to [facility] from the [facility]. From [facility], she was transferred down here and was evaluated by Dr. Antonio in our emergency Room. The patient was initially admitted with a diagnosis of pneumonia with impending respiratory failure. Because of worsening hypoxemia, she was electively intubated by the ER physician. She remains on the ventilator at this time. The patient really has not made much progress and on each attempt to do a daily interruption of sedation with a spontaneous breathing trial, the patient has failed. Currently, she is on the volume assist-control mode rate of 20, tidal volume 350, FiO2 of 35%, PEEP of 5. Blood gases show pO2 of 70, pCO2 of 35 and a pH of 7.48. The patient is on saline at 75 mL an hour, propofol at 30 mcg/kg per minute and Vital high-protein at 34 with a goal of 34 mL an hour. Microbiology shows Haemophilus influenzae in the sputum. Today we had a chance to talk to the guardian again. Her name is Evelin. We talked to her each of the last three days. We were trying to get some sort of direction as to what to do for Ms. Chandler going forward. I thought either she would a continued full code and probably end up with a tracheostomy and PEG tube or she would be terminally wean from mechanical ventilator since she was not making any progress. The guardian was able to help me make that decision by talking to the ex- and son. The ex- apparently said that the patient would not have wanted to be on life support indefinitely and certainly would not want a tracheostomy and PEG tube. Hence, the guardian decided to make the patient a no code and thought the patient would be better served with a comfort measures only order. Anyway, that is the current status of this patient. PHYSICAL EXAMINATION: VITAL SIGNS: Current vital signs are reviewed. Temperature is 99.1, heart rate 81, respiratory rate 28, blood pressure 130/61 mean 84, CVP is 9, saturations 98%. Appears in no acute distress. HEENT: Examination is grossly unremarkable. NECK: Supple. Full range of motion. No adenopathy. Neck veins are flat. CARDIOVASCULAR: Examination reveals regular rhythm and rate. Heart rate 81. S1, S2 normal. LUNGS: Reveal diffuse coarse rhonchi. Breath sounds equal. ABDOMEN: Soft. Bowel sounds are heard. EXTREMITIES are intact. There is some edema. SKIN: Without rash. NEUROLOGIC: Examination could not be adequately assessed. CURRENT LABORATORY DATA: Includes a white count 5.9, hemoglobin 9.5, hematocrit 28.8, platelet count 140,000. Blood gases show pO2 of 70, pCO2 of 35 and a pH of 7.48. Sodium 139, potassium 3.6, chloride 113, CO2 26, anion gap is 0. BUN and creatinine were 17 and 0.53. Microbiologic studies are positive for Haemophilus influenzae in the sputum of January 07. Chest x-ray on January 11 shows persistent bilateral infiltrates and atelectasis with pleural effusion. The most recent chest x-ray suggests some progression. CURRENT MEDICATIONS: Reviewed. She is currently on Tylenol, Lasix, Dilaudid, Ativan, morphine, Zofran, propofol and scopolamine patch. We were able to talk again to the guardian. The guardian apparently contacted the son and the ex-. Everyone felt that the patient should be terminally wean. They were in agreement for comfort measures. So was the guardian. That will take place sometime today. ASSESSMENT: 1. Acute hypoxemic respiratory failure secondary to bibasilar pneumonia, left greater than right, status post intubation and mechanical ventilation on January 07, here at [facility], in the ER, with failure to wean from mechanical ventilation despite multiple attempts with daily interruptions of sedation and spontaneous breathing trials. 2. History of diabetes mellitus. 3. Vague history of hypertension. 4. History of dementia. 5. Vitamin D deficiency. 6. General medical debility. 7. Obesity. 8. Vague skin disorder. PLAN: The patient will have comfort measure orders placed. I did speak to the guardian today. The guardian spoke to the ex- and the son. They all felt that the patient would not want to be on life support any further. They also were in agreement that the patient would not want long-term mechanical ventilation and certainly would not want a tracheostomy or PEG tube placement. They are in agreement for terminal weaning and comfort measures. That will be implemented today. No additional recommendations are made. Prognosis is obviously very poor. Unnecessary medications will be discontinued. We will continue to follow. Critical care time 33 minutes. CATHERINE / AIDAN: [id number] / NIKUNJ
[2020-01-12 12:42] VITALS: PULSE 86; TEMP 98.4
[2020-01-12] MEDS ORDERED: MORPHINE CONC SOLN 10mg/0.5mL ORAL SYRG SL PRN (14:23)
[2020-01-12 14:52] VITALS: BP 146/65; RESP 26
--- NOTE | 2020-01-12 17:39 | P.PN ---
Subjective Progress Note Date: 01/12/20 Principal diagnosis: Acute hypoxic respiratory failure Non-ST elevation AK Status post cardiac catheterization with stent placement UTI 64 years old female with past medical history of dementia, diabetes mellitus, hypertension, chronic venous stasis of both lower extremities with leg edema, frequent falls. Anxiety, depression and schizoaffective disorder. History of urinary incontinence. Patient is from [facility]. Normally she is oriented to time and place and person. Patient got intubated and emergency room and information could not be obtained from patient. Was obtained from medical records and staff. She was transferred from [facility] for pneumonia and hypoxia. She had fever and cough and. She is tachycardic with heart rate 133-142, blood pressure 164/68, she had low- grade fever of 100.3. Left showing unremarkable CBC, BMP and liver enzymes. Lactic acid is elevated to 3.0-3.8 Chest x-ray: Showing worsening left midlung acute infiltrate, endotracheal tube In the emergency room patient was started on Tylenol, bronchodilator and Zosyn Objective - Vital Signs Vital signs: Vital Signs Temp 98.4 F 01/12/20 12:00 Pulse 86 01/12/20 12:00 Resp 29 H 01/12/20 12:00 BP 155/82 01/12/20 12:00 Pulse Ox 90 L 01/12/20 12:00 Intake & Output 01/11/20 01/12/20 01/12/20 18:59 06:59 18:59 Intake Total 2487.653 8999.775 174.013 Output Total 2880 685 175 Balance -989.167 489.775 -0.987 Weight 114 kg 114 kg Intake: IV 972 972 93 Pressure Bags 72 72 18 Sodium Chloride 0.9% 1, 900 900 75 000 ml @ 75 mls/hr IV . [id number] [facility] Rx#:[id number] Intake, IV Titration 360.833 168.775 81.013 Amount Morphine Sulfate (100 mg/ 0.544 2 ml) 100 mg In Sodium Chloride 0.9% 100 ml @ 1 MG/HR 1.02 mls/hr IV . Q24H [facility] Rx#:[id number] Piperacillin-Tazobactam 3 200 .375 gm In Sodium Chloride 0.9% 100 ml @ 25 mls/hr IVPB Q8HR [facility] Rx# :[id number] propofoL 1,000 mg In 160.833 168.775 80.469 Empty Bag 1 bag @ Titrate IV .Q0M [facility] Rx#: [id number] Tube Feeding 408 34 Other 150 Output: Urine 2880 685 175 Other: Voiding Method Indwelling Catheter Indwelling Catheter Indwelling Catheter # Bowel Movements 1 ABP, PAP, CO, CI - Last Documented Arterial Blood Pressure 112/48 - Exam PHYSICAL EXAMINATION: GENERAL: The patient is alert and oriented x3, not in any acute distress. Well developed, well nourished. HEENT: Pupils are round and equally reacting to light. EOMI. No scleral icterus. No conjunctival pallor. Normocephalic, atraumatic. No pharyngeal erythema. No thyromegaly. CARDIOVASCULAR: S1 and S2 present. No murmurs, rubs, or gallops. PULMONARY: Chest is clear to auscultation, no wheezing or crackles. ABDOMEN: Soft, nontender, nondistended, normoactive bowel sounds. No palpable organomegaly. MUSCULOSKELETAL: No joint swelling or deformity. EXTREMITIES: No cyanosis, clubbing, or pedal edema. NEUROLOGICAL: Gross neurological examination did not reveal any focal deficits. SKIN: No rashes. - Labs CBC & Chem 7: 01/12/20 04:25 01/12/20 04:25 Labs: Abnormal Lab Results - Last 24 Hours (Table) 01/11/20 01/12/20 01/12/20 Range/Units 17:53 00:09 04:25 RBC 2.84 L (3.80-5.40) m/uL Hgb 9.5 L (11.4-16.0) gm/dL Hct 28.8 L (34.0-46.0) % MCV 101.3 H (80.0-100.0) fL Plt Count 140 L (150-450) k/uL Metamyelocytes # (Man) 0.41 H (0) k/uL ABG pH (7.35-7.45) ABG pO2 (83-108) mmHg ABG HCO3 (21-25) mmol/L ABG Total CO2 (19-24) mmol/L Chloride (98-107) mmol/L Glucose (74-99) mg/dL POC Glucose (mg/dL) 251 H 230 H (75-99) mg/dL Calcium (8.4-10.2) mg/dL 01/12/20 01/12/20 01/12/20 Range/Units 04:25 05:10 07:07 RBC (3.80-5.40) m/uL Hgb (11.4-16.0) gm/dL Hct (34.0-46.0) % MCV (80.0-100.0) fL Plt Count (150-450) k/uL Metamyelocytes # (Man) (0) k/uL ABG pH 7.48 H (7.35-7.45) ABG pO2 70 L (83-108) mmHg ABG HCO3 26 H (21-25) mmol/L ABG Total CO2 27 H (19-24) mmol/L Chloride 113 H (98-107) mmol/L Glucose 217 H (74-99) mg/dL POC Glucose (mg/dL) 269 H (75-99) mg/dL Calcium 8.2 L (8.4-10.2) mg/dL Microbiology - Last 24 Hours (Table) 01/09/20 10:30 Blood Culture - Preliminary Blood No Growth after 72 hours 01/08/20 08:00 Gram Stain - Final Sputum Sputum Culture - Final Haemophilus influenzae Assessment and Plan Assessment: Acute left lung pneumonia, with development of right pneumonia most likely healthcare acquired pneumonia, secondary to hemophilus influenzae Acute hypoxic respiratory failure, needing intubation and mechanical ventilation Elevated lactic acid Dementia Diabetes mellitus, with hyperglycemia Hypertension Chronic venous stasis ulcers and bilateral leg edema Frequent falls History of anxiety, depression and schizoaffective disorder History of urinary incontinence Plan: Patient remains in ICU; music video producer service did have a chance to talk to patient's guardian, Evelin who spoke with the patient's and family were able to come to conclusion that they would not want patient to be on life support indefinitely and would not want tracheostomy and PEG placement; family made patient no code and requested comfort measures; hospice to see patient and implement comfort measures with possible discharge to hospice in next 24 hours
--- NOTE | 2020-01-13 11:09 | P.DS ---
Providers Date of admission: 01/08/20 08:14 Expected date of discharge: 01/13/20 Attending physician: Thomas Hernandez MD Consults: 01/08/20 08:14 Consult Physician Stat Consulting Provider: Enoch Snyder Consult Reason/Comments: ICU management Do you want consulting provider notified?: Already Contacted 01/11/20 21:35 Consult Physician Urgent Consulting Provider: Emery Huerta Consult Reason/Comments: worsening pna Do you want consulting provider notified?: Yes Primary care physician: Stated None Hospital Course: This is a pleasant 64 years old female with past medical history of dementia, diabetes mellitus, hypertension, chronic venous stasis of both lower extremities with leg edema, frequent falls. Anxiety, depression and schizoaffective disorder. History of urinary incontinence. Patient [facility]. Normally she is oriented to time and place and person. Patient got intubated and emergency room and information could not be obtained from patient. Was obtained from medical records and staff. She was transferred from [facility] for pneumonia and hypoxia. She had fever and cough and. She is tachycardic with heart rate 133-142, blood pressure 164/68, she had low- grade fever of 100.3. Left showing unremarkable CBC, BMP and liver enzymes. Lactic acid is elevated to 3.0-3.8 Chest x-ray: Showing worsening left midlung acute infiltrate, endotracheal tube In the emergency room patient was started on Tylenol, bronchodilator and Zosyn 01/09/2020 Patient remains intubated in the ICU. She is not undergoing sedation holiday [place] and trial reduction still needs high PEEP of 10. Vitals: Blood pressure looks more stable. Left showing evidence of hemodilution. Potassium 3.2, been replaced. Sugar is slightly elevated but acceptable. Oral tube feeding is started. She remains on Zosyn and normal saline at 1 30 L/h. No need for pressors 01/10/2020 Patient intubated and sedated in the ICU, she is undergoing sedation holiday, h er PEEP is down to 5 however she is tachypneic more than 30-35 breath per minute. She might need to be staying intubated today. Slightly tachycardic also. Labs are reviewed including CBC and BMP, Sugar controlled slightly on the high side. She culture is growing Haemophilus influenzaeand sensitivity is pending. Patient is currently on Zosyn, normal saline floor to 75 mL/h 01/11/2020 Patient underwent sedation holiday today however she could not tolerate it for more than one hour, she became tachypneic, tachycardic and agitated so she does not follow commands. Patient remains intubated currently and continue with same treatment for her pneumonia, she is on normal saline at 75 mL/h. Chest x-ray from today showing worsening left lower lobe pneumonia. Developing right pneumonia. We will call infectious disease consult for adjustment of antibiotics. Sputum culture growing Haemophilus influenzae, sensitivities pending. Increase in insulin to 10 units of Levemir for hyperglycemia. 01/12/2020 Program Therapist service has been counseling the family has decided for comfort measures patient's guardian was approached who spoke with the patient's ex- and son and it was agreed to not proceed with tracheostomy and PEG tube placement or custodial mechanical ventilation; terminal wean and comfort measures implemented 01/13/2020; patient is planned to be discharged to hospice facility Patient Condition at Discharge: Critical Plan - Discharge Summary Discharge Rx Participant: No New Discharge Prescriptions: No Action Calcium Carbonate [Tums] 1,000 mg PO Q2H PRN MDD 7500mg PRN Reason: Gi Upset Acetaminophen [Tylenol Extra Strength] 500 mg PO Q6H PRN PRN Reason: Breakthrough Pain Magnesium Hydroxide [Milk of Magnesia Concentrate] 7,200 mg PO DAILY PRN PRN Reason: Constipation Ketoconazole 2% Shampoo [Nizoral] 1 applic TOPICAL DAILY PRN PRN Reason: dry patches on scalp bisacodyL [Bisacodyl] 10 mg RECTAL Q72H PRN PRN Reason: Constipation Divalproex ER [Depakote ER] 500 mg PO TID@0900,1700,1999 Memantine [Namenda] 5 mg PO BID@0900,1700 metFORMIN HCL [Glucophage] 500 mg PO BID@0900,1700 Bumetanide [BUMEX] 2 mg PO BID@0900,1700 Linagliptin [Tradjenta] 5 mg PO DAILY@0900 Potassium Chloride ER [K-Dur 20] 40 meq PO DAILY@0900 haloperidoL [Haldol] 10 mg PO HS@2000 Escitalopram [Lexapro] 5 mg PO DAILY@0900 Insulin Glargine,Hum.rec.anlog [Harry Palma U-100] 20 unit SQ HS@1999 Ondansetron [Zofran ODT] 4 mg PO Q4H PRN PRN Reason: Nausea And Vomiting Discharge Medication List Acetaminophen [Tylenol Extra Strength] 500 mg PO Q6H PRN 01/08/20 [History] Bumetanide [BUMEX] 2 mg PO BID@899,169901/08/20 [History] Calcium Carbonate [Tums] 1,000 mg PO Q2H PRN MDD 7500mg 01/08/20 [History] Divalproex ER [Depakote ER] 500 mg PO TID@899,1699,199901/08/20 [History] Escitalopram [Lexapro] 5 mg PO DAILY@89901/08/20 [History] Insulin Glargine,Hum.rec.anlog [Harry Palma U-100] 20 unit SQ HS@199901/08/20 [History] Ketoconazole 2% Shampoo [Nizoral] 1 applic TOPICAL DAILY PRN 01/08/20 [History] Linagliptin [Tradjenta] 5 mg PO DAILY@89901/08/20 [History] Magnesium Hydroxide [Milk of Magnesia Concentrate] 7,200 mg PO DAILY PRN 01/08/20 [History] Memantine [Namenda] 5 mg PO BID@899,169901/08/20 [History] Ondansetron [Zofran ODT] 4 mg PO Q4H PRN 01/08/20 [History] Potassium Chloride ER [K-Dur 20] 40 meq PO DAILY@89901/08/20 [History] bisacodyL [Bisacodyl] 10 mg RECTAL Q72H PRN 01/08/20 [History] haloperidoL [Haldol] 10 mg PO HS@199901/08/20 [History] metFORMIN HCL [Glucophage] 500 mg PO BID@899,169901/08/20 [History] Follow up Appointment(s)/Referral(s): None,Stated [Primary Care Provider] - 1-2 days Discharge Disposition: [facility] TO [facility]
--- NOTE | 2020-01-14 13:46 | CDI ---
Documentation Clarification Form Date: 01/14/20 From: [place] [facility] Phone: If you have a question about this query, please contact Letitia Bishop, Geriatric Care Manager at [phone] between 8am and 5pm. Admit Date: 01/08/20 Discharge Date: 01/12/20 Patient Name: SANTOSH BRYSON Visit Number: [id number] ATTENTION: The Clinical Documentation Specialists (CDI) and [facility] Coding Staff appreciate your assistance in clarifying documentation. Please respond to the clarification below the line at the bottom and electronically sign. The CDI & [facility] Coding staff will review the response and follow-up if needed. Please note: Queries are made part of the Legal Health Record. If you have any questions, please contact the author of this message via ITS. Dear Dr. Timothy Ritchie, Conflicting documentation has been found in the medical record: Per your last PN on 01/11 you state the patient had Non-ST elevation DE and UTI. No other documentation that confirms Non-ST DE and UTI. History/Risk Factors: sepsis, acute hypoxic respiratory failure, H influenza pneumonia, nosocomial, acidosis, DM 2 Clinical Indicators: No Troponin levels, no EKG. Treatment: IV fluids, IV Zoysn, Levophed In your opinion, what is the most clinically appropriate diagnosis for this patient? Non-ST DE and UTI present and treated this admission Non-ST DE and UTI not present or treated this admission Other explanation of clinical findings Unable to determine (no explanation for clinical findings) Patient was admitted and treated for Ac Resp failure and PNA; Dx of NSEMI/ cardiac cath and UTI was inadvertently added; patients chart is addended accordingly MTDD
== END 2020-01-12 18:08 | DRG 870 ==
LOC: EEVIPCON 06:29 → EC 06:29 → 2SICU 08:14
PROVIDERS: ADMIT Internal Medicine; ATTEND Internal Medicine
PROC: 5A1955Z Respiratory Ventilation, Greater than 96 Consecutive Hours (ICD-10-PCS; principal; 2020-01-08)
PROC: 0BH17EZ Insertion of Endotracheal Airway into Trachea, Via Natural or Artificial Opening (ICD-10-PCS; principal; 2020-01-08)
PROC: 4A133J1 Monitoring of Arterial Pulse, Peripheral, Percutaneous Approach (ICD-10-PCS; 2020-01-08)
PROC: 3E043XZ Introduction of Vasopressor into Central Vein, Percutaneous Approach (ICD-10-PCS; 2020-01-08)
PROC: 02H633Z Insertion of Infusion Device into Right Atrium, Percutaneous Approach (ICD-10-PCS; 2020-01-08)
PROC: 4A133B1 Monitoring of Arterial Pressure, Peripheral, Percutaneous Approach (ICD-10-PCS; 2020-01-08)
PROC: 03HY32Z Insertion of Monitoring Device into Upper Artery, Percutaneous Approach (ICD-10-PCS; 2020-01-08)
PROC: 0D9670Z Drainage of Stomach with Drainage Device, Via Natural or Artificial Opening (ICD-10-PCS; 2020-01-08)
PROC: 3E0G76Z Introduction of Nutritional Substance into Upper GI, Via Natural or Artificial Opening (ICD-10-PCS; 2020-01-09)
DX: A41.9 Sepsis, unspecified organism (principal); J96.01 Acute respiratory failure with hypoxia; J14 Pneumonia due to Hemophilus influenzae; E87.2 Acidosis; L97.919 Non-pressure chronic ulcer of unspecified part of right lower leg with unspecified severity; L97.929 Non-pressure chronic ulcer of unspecified part of left lower leg with unspecified severity; L03.116 Cellulitis of left lower limb; L03.115 Cellulitis of right lower limb; Z68.42 Body mass index [BMI] 45.0-49.9, adult; F25.9 Schizoaffective disorder, unspecified; I83.009 Varicose veins of unspecified lower extremity with ulcer of unspecified site; F03.90 Unspecified dementia, unspecified severity, without behavioral disturbance, psychotic disturbance, mood disturbance, and anxiety; E11.51 Type 2 diabetes mellitus with diabetic peripheral angiopathy without gangrene; E11.65 Type 2 diabetes mellitus with hyperglycemia; Z79.4 Long term (current) use of insulin; Z66 Do not resuscitate; Z51.5 Encounter for palliative care; R65.20 Severe sepsis without septic shock; E66.9 Obesity, unspecified; Y95 Nosocomial condition; E55.9 Vitamin D deficiency, unspecified; K59.00 Constipation, unspecified; I10 Essential (primary) hypertension; R29.6 Repeated falls; F32.9 Major depressive disorder, single episode, unspecified; F41.9 Anxiety disorder, unspecified; R32 Unspecified urinary incontinence; Z79.899 Other long term (current) drug therapy; Z87.891 Personal history of nicotine dependence; Z87.2 Personal history of diseases of the skin and subcutaneous tissue; Z71.3 Dietary counseling and surveillance
CPT/HCPCS: 31500; 36415; 36600; 71045; 80048; 80053; 81001; 82803; 82805; 83036; 83605; 83735; 84132; 85025; 87040; 87070; 87205; 87502; 94002; 94003; 94640; 96374; 99291

== ENCOUNTER 2020-01-12 15:16 | Inpatient (IN) | payer MEDICAID ==
[2020-01-12] MEDS ORDERED: ACETAMINOPHEN TAB 325 MG TAB PO PRN (15:20)
[2020-01-12] MEDS ORDERED: ATROPINE OPHTH SOLN 1% 5ML BTL SUBLINGUAL PRN (15:20)
[2020-01-12] MEDS ORDERED: LORazepam 0.5 MG TAB PO PRN (15:20)
[2020-01-12] MEDS ORDERED: MORPHINE CONC SOLN 10mg/0.5mL ORAL SYRG SL PRN (15:22)
[2020-01-13 01:36] VITALS: BP 133/65; PULSE 93; RESP 16
== END 2020-01-13 08:48 | DRG 951 ==
LOC: 2SICU 18:14
PROVIDERS: ADMIT Internal Medicine; ATTEND Internal Medicine
DX: Z51.5 Encounter for palliative care (principal); Z68.42 Body mass index [BMI] 45.0-49.9, adult; Z66 Do not resuscitate; F25.9 Schizoaffective disorder, unspecified; F03.90 Unspecified dementia, unspecified severity, without behavioral disturbance, psychotic disturbance, mood disturbance, and anxiety; E11.51 Type 2 diabetes mellitus with diabetic peripheral angiopathy without gangrene; E66.9 Obesity, unspecified; I10 Essential (primary) hypertension; I87.8 Other specified disorders of veins; R32 Unspecified urinary incontinence; K59.00 Constipation, unspecified; F32.9 Major depressive disorder, single episode, unspecified; F41.9 Anxiety disorder, unspecified; R29.6 Repeated falls; Z79.4 Long term (current) use of insulin; Z79.899 Other long term (current) drug therapy; Z87.891 Personal history of nicotine dependence; Z91.81 History of falling